=== PATIENT | male | born 1945 | race Hispanic/Latino ===

== ENCOUNTER → 2018-06-02 | Day surgery (SDC) | payer MEDICARE ==
[2018-05-29 12:23] LABS: BASOPHILS % 0.7 % (0.0-1.0); EOSINOPHILS # (AUTO) 0.1 (0.0-0.4); EOSINOPHILS % 1.3 % (0.0-6.0); HEMATOCRIT 45.4 % (38.2-49.6); HEMOGLOBIN 15.4 g/dL (14.0-18.0); LYMPHOCYTES # (AUTO) 1.4 (1.0-3.2); LYMPHOCYTES % 25.5 % (18.0-39.1); MEAN CORPUSCULAR HEMOGLOBIN 31.3 pg (28-32); MEAN CORPUSCULAR HGB CONC 33.9 g/dL (31-35); MEAN CORPUSCULAR VOLUME 92.3 fL (81-99); MONOCYTES # (AUTO) 0.7 (0.2-0.8); MONOCYTES % 12.4 % (4.4-11.3); NEUTROPHILS # (AUTO) 3.3 (2.1-6.9); NEUTROPHILS % 59.9 % (38.7-80.0); PLATELET COUNT 155 x10e3/uL (140-360); RED BLOOD COUNT 4.92 x10e6/uL (4.3-5.7); RED CELL DISTRIBUTION WIDTH 12.7 % (11.7-14.4)
--- NOTE | 2018-05-29 12:54 | Diagnostic Imaging Report ---
EXAMINATION: CHEST 2 VIEWS INDICATION: \S\PRE OP \S\ANESTH PROT COMPARISON: None FINDINGS: PA and lateral views TUBES and LINES: None. LUNGS: Lungs are well inflated. Mild linear scarring in the left upper lobe. There is no evidence of pneumonia or pulmonary edema. PLEURA: No pleural effusion or pneumothorax. HEART AND MEDIASTINUM: The cardiomediastinal silhouette is unremarkable. BONES AND SOFT TISSUES: No acute osseous lesion. Soft tissues are unremarkable. UPPER ABDOMEN: No free air under the diaphragm. Right upper quadrant cholecystectomy clips. IMPRESSION: No acute thoracic abnormality. Mild linear scarring in the left upper lobe may reflect sequela of prior pneumonia. Signed by: Dr. Lyubov Machado M.D. on 05/29/2018 12:50 PM
[~2018-06-02] MED LIST: ASPIRIN81 MG; BUPIVACAINE HCL 0.5% INJ 30 ML VIAL INJ ONE; CALCIUM; CEFAZOLIN SOD 2 GM/D5W 50ML 50 ML IV ONE; DEXAMETHASONE SOD PHOS INJ 4 MG/ML VIAL ONE; EPHEDRINE SULFATE INJ 50 MG/10 ML SYR ONE; FENTANYL CITRATE/PF 100MCG/2 ML INJ ONE; LIDOCAINE HCL 2% LOCAL INJ 5 ML SDV VIAL INJ ONE; MUPIROCIN 2% OINT 22 GM TUBE ONE; ONDANSETRON HCL INJ 2 MG/ML VIAL ONE; PROPOFOL IV EMULSION 10 MG/ML 20 ML VIAL ONE; SEVOFLURANE INHAL SOLN 250 ML PEN BTL ONE
--- NOTE | 2018-06-02 12:14 | Operative Report ---
DATE OF PROCEDURE: June 02, 2018 PREOPERATIVE DIAGNOSES 1. Tailor's bunion with plantarflexed metatarsal, 5th, right foot. 2. Hammertoe, rigid, 5th, right foot. 3. Tailor's bunion with plantarflexed 5th metatarsal, left foot. 4. Rigid hammertoe, left 5th. PROCEDURES 1. Reverse Vladimir 5th metatarsal osteotomy, right. 2. Reverse Vladimir 5th metatarsal osteotomy, left. 3. Arthroplasty, 5th digit, right. 4. Arthroplasty, 5th digit, left. 5. Use of AlloWrap to prevent adhesions, to promote healing, and to decrease the inflammatory response with a bursa at the 5th metatarsophalangeal joint, a 2 x 4 that was split in half. Half was put into the right, and half was put into the left. PATHOLOGY: None. ANESTHESIA: General anesthetic. HEMOSTASIS: Pneumatic thigh tourniquet at 350 mmHg. ESTIMATED BLOOD LOSS: Less than 10 mL. MATERIALS: EasyClip 10 x 10 x 10 mm staple for the right and EasyClip 10 x 10 x 10 staple for the left for the 5th metatarsal osteotomy. AlloWrap DS wet 2 x 4 cm, reference number [id number], lot [id number], expiration date April 05, 2019. PROCEDURE IN DETAIL: Under mild sedation, the patient was brought to the operating room and placed on the operating room table in the supine position. Following IV sedation, anesthesia was obtained with a general anesthetic. At this point, first the right foot was scrubbed, prepped and draped in the usual aseptic manner. The pneumatic ankle tourniquet was inflated. After the procedure was performed on the right, the left was then scrubbed, prepped and draped in the usual aseptic manner. It was inflated to 250 mmHg. Fifth metatarsal osteotomy, right foot: Attention was then directed to the 5th MPJ where a linear incision was made overlying the 5th metatarsal. The incision was deepened via sharp and blunt dissection down to the level of the 5th MPJ. Once the MPJ was exposed, the 5th metatarsal was then exposed. There was noted to be a medial exostosis and a plantarflexed 5th metatarsal to the right foot. Utilizing an oscillating saw, reversed Vladimir type of osteotomy was performed. The head of the 5th metatarsal was then moved into a more medial and dorsiflexed position in order to decrease the plantarflexed contracture and to decrease the intermetatarsal angle. This was secured utilizing a 10 x 10 x 10 mm EasyClip staple. There were noted to be adequate compression and adequate alignment clinically and with the use of intraop fluoroscopy. Fifth metatarsal osteotomy, left foot: This procedure was performed in the exact same manner as the procedure named above. Arthroplasty, 5th digit, right: Attention was then directed to the 5th digit where 2 semielliptical incisions that converged medial distal and proximal lateral were made. The incision was deepened down to the level of the PIPJ. At the PIPJ, the extensor tendon was then tenotomized. The PIPJ was then exposed. Once the PIPJ was then exposed, utilizing an oscillating saw, the contracture from the proximal phalanx, the head was then removed. The contracture was released. There was noted to be adequate alignment clinically and with the use of intraop fluoroscopy. At this point, the area was then flushed with copious amounts of normal sterile saline solution. Arthroplasty, 5th digit, left foot: This procedure was performed in the exact same manner as the procedure named above. Application of AlloWrap wet 2 x 4 cm: A 2 x 4 cm AlloWrap was cut in half. It was then inserted into the area of the 5th MPJ on the right and on the left. All the incisions were then closed, closing the wound in the deepest layer with 4-0 Vicryl, then 4-0 nylon. A clean dressing was applied consisting of Adaptic covered by 4 x 4's, Kerlix and an Maldonado bandage. The tourniquet was deflated first on the right and then the left, and there was noted to be adequate hyperemic response. The patient tolerated the procedure and the anesthesia well without complications. He was transported to the recovery room with vital signs stable and vascular status intact to both feet. The patient will be discharged home when he meets criteria. He was given instructions to be partial weightbearing with the use of postop shoes, to ice and elevate the foot while at rest, to limit weightbearing to activities of daily living, to call the office if any questions, concerns or any problems arise. Job#: [id number]
[2018-06-02 12:15] VITALS: BP 110/76
--- OUTSIDE RECORDS SUMMARY | 2018-06-02 14:40 | XMS REPORT | Summary of Care ---
Author Author [facility] Organization [facility] Address Unknown Phone Unavailable Encounter ROMAN Landis(DYLAN) [id number] Date(s): 04/02/17 - 04/02/17 [facility] [address] [place] [address]- Discharge Disposition: Home or Self Care Attending Physician: Chaz Lam MD Referring Physician: Chaz Lam MD Vital Signs 1 2 3 Most recent to oldest [Reference Range]: 177.8 cm (04/01/17 4:28 PM) Height 97.8 DegF (04/01/17 4:29 PM) Temperature Oral [96.4-99.1 DegF] 99/67 mmHg (04/02/17 3:15 PM) 97/71 mmHg (04/02/17 2:00 PM) 116/66 mmHg (04/02/17 1:45 PM) Blood Pressure [90-140/60-90 mmHg] 14 BRMIN (04/02/17 1:45 PM) 16 BRMIN (04/02/17 1:30 PM) 14 BRMIN (04/02/17 1:15 PM) Respiratory Rate [14-20 BRMIN] 62 bpm (04/02/17 9:27 AM) 54 bpm *LOW* (04/01/17 4:29 PM) Peripheral Pulse Rate [60-100 bpm] 66.818 kg (04/01/17 4:28 PM) Weight 21.14 m2 (04/01/17 4:28 PM) Body Mass Index Problem List Condition Effective Dates Status Health Status Informant FH: Diabetes 07/05/14 Active mellitus1 Hypertension(Confirm Resolved ed) Low back pain2 07/05/14 Active Lumbar 07/05/14 Active radiculopathy3 1Data migrated from Given.to on 04/11/15. 2Data migrated from Given.to on 04/11/15. 3Data migrated from Given.to on 04/11/15. Allergies, Adverse Reactions, Alerts Substance Reaction Severity Status NKDA Active Medications acetaminophen (ANES) Route: IV, Drug form: INJ, ONCE, Stop date: 04/02/17 11:04:00 CDT Start Date: 04/02/17 Stop Date: 04/02/17 Status: Completed acetaminophen-hydrocodone 325 mg-5 mg oral tablet 1 tab, PO, Q4H, PRN Pain, # 60 tab, 0 Refill(s), given to patient Start Date: 04/02/17 Stop Date: 04/18/17 Status: Ordered acetaminophen-hydrocodone 325 mg-5 mg oral tablet 1 tab, Route: PO, Drug Form: TAB, Dosing Weight 66.818, kg, Q4H, PRN Pain Score 4-6, Start date: 04/02/17 12:51:00 CDT, Duration: 30 day, Stop date: 05/02/17 12 :50:00 CDT Notes: (Same as: Howell 325/5) Do not exceed 4gm/day of acetaminophen. Start Date: 04/02/17 Stop Date: 04/02/17 Status: Discontinued acetaminophen-hydrocodone 325 mg-5 mg oral tablet 1 tab, Route: PO, Drug Form: TAB, Dosing Weight 66.818, kg, Q4H, PRN Pain, Start date: 04/02/17 12:51:00 CDT, Duration: 30 day, Stop date: 05/02/17 12:50:00 CDT Start Date: 04/02/17 Stop Date: 04/02/17 Status: Deleted albuterol-ipratropium 2.5-0.5 mg inhalation solution 3 mL, Route: NEB, Dosing Weight 66.818, kg, ONCE, STAT, Start date: 04/02/17 9:4 9:00 CDT, Stop date: 04/02/17 9:49:00 CDT Start Date: 04/02/17 Stop Date: 04/02/17 Status: Discontinued ANES acetaminophen 1,000 mg, 2 tab, Route: PO, Drug form: TAB, ONCE, Dosing Weight 66.818, kg, PRN Pain Score 1-3, Start date: 04/02/17 14:19:00 CDT, Duration: 1 doses or times, S top date: Limited # of times Notes: Max acetaminophen 4000 mg/day (4 gm/day). (Same as: Tylenol Extra Streng th) Start Date: 04/02/17 Stop Date: 04/02/17 Status: Discontinued ANES albuterol 0.083% inhalation solution 2.49 mg, 3 mL, Route: NEB, Drug form: SOLN, Q20Min, Dosing Weight 66.818, kg, MN N Wheezing, Priority: STAT, Start date: 04/02/17 14:19:00 CDT, Duration: 30 day, Stop date: 05/02/17 14:18:00 CDT Notes: SEE RT DOCUMENTATION (Same as: Arvind) Start Date: 04/02/17 Stop Date: 04/02/17 Status: Discontinued ANES dexamethasone 4 mg, 1 mL, Route: IVP, Drug form: INJ, ONCE, Dosing Weight 66.818, kg, PRN Naus ea & Vomiting, Start date: 04/02/17 14:19:00 CDT Start Date: 04/02/17 Stop Date: 04/02/17 Status: Discontinued ANES diphenhydrAMINE 12.5 mg, 0.25 mL, Route: IVP, Drug form: INJ, Q6H, Dosing Weight 66.818, kg, PRN Itching, Start date: 04/02/17 14:19:00 CDT, Duration: 30 day, Stop date: 14:18:00 CDT Notes: (Same as: Benadryl) Start Date: 04/02/17 Stop Date: 04/02/17 Status: Discontinued ANES esmolol 10 mg, 1 mL, Route: IVP, Drug form: INJ, Q5Min, Dosing Weight 66.818, kg, PRN Ot her -See Comment, Start date: 04/02/17 14:19:00 CDT, Duration: 5 doses or times, Stop date: Limited # of times Notes: (Same as: Brevibloc) Start Date: 04/02/17 Stop Date: 04/02/17 Status: Discontinued ANES fentaNYL 50 microgram, 1 mL, Route: IVP, Drug form: INJ, Q5Min, Dosing Weight 66.818, kg, PRN Pain Score 7-10, Priority: Routine, Start date: 04/02/17 14:19:00 CDT, Dura tion: 2 doses or times, Stop date: Limited # of times Notes: (Same as: Sublimaze) Preservative free. Start Date: 04/02/17 Stop Date: 04/02/17 Status: Discontinued ANES fentaNYL 25 microgram, 0.5 mL, Route: IVP, Drug form: INJ, Q5Min, Dosing Weight 66.818, k g, PRN Pain Score 4-6, Priority: Routine, Start date: 04/02/17 14:19:00 CDT, Dur ation: 4 doses or times, Stop date: Limited # of times Notes: (Same as: Sublimaze) Preservative free. Start Date: 04/02/17 Stop Date: 04/02/17 Status: Discontinued ANES flumazenil 0.2 mg, 2 mL, Route: IVP, Drug form: INJ, PRN, Dosing Weight 66.875, kg, PRN Yefri zodiazepine Reversal, Initial dose, Start date: 04/02/17 14:19:00 CDT, Duration: 30 day, Stop date: 05/02/17 14:18:00 CDT Notes: (Same as: Romazicon) Start Date: 04/02/17 Stop Date: 04/02/17 Status: Discontinued ANES hydrALAZINE 10 mg, 0.5 mL, Route: IVP, Drug form: INJ, Q20Min, Dosing Weight 66.818, kg, PRN Elevated BP, Start date: 04/02/17 14:19:00 CDT, Duration: 2 doses or times, Stop date: Limited # of times Notes: (Same as: Apresoline)Push over 5 minutes Start Date: 04/02/17 Stop Date: 04/02/17 Status: Discontinued ANES HYDROmorphone 0.5 mg, 0.5 mL, Route: IVP, Drug form: INJ, Q5Min, Dosing Weight 66.875, kg, PRN Pain Score 7-10, Start date: 04/02/17 14:19:00 CDT, Duration: 4 doses or times, Stop date: Limited # of times Start Date: 04/02/17 Stop Date: 04/02/17 Status: Discontinued ANES labetalol 10 mg, 2 mL, Route: IVP, Drug form: INJ, Q5Min, Dosing Weight 66.818, kg, PRN El evated BP, Start date: 04/02/17 14:19:00 CDT, Duration: 5 doses or times, Stop d ate: Limited # of times Notes: (Same as: Normodyne, Trandate)Push over 2 minutes Give bolus over 2-3 mi nutes. Start Date: 04/02/17 Stop Date: 04/02/17 Status: Discontinued ANES meperidine 12.5 mg, 0.25 mL, Route: IVP, Drug form: INJ, Q30Min, Dosing Weight 66.818, kg, PRN Other -See Comment, For shivering, Start date: 04/02/17 14:19:00 CDT, Durati on: 2 doses or times, Stop date: Limited # of times Notes: (Same As: Demerol) Start Date: 04/02/17 Stop Date: 04/02/17 Status: Discontinued ANES morphine Sulfate 4 mg, 1 mL, Route: IVP, Drug form: SOLN, Q5Min, Dosing Weight 66.818, kg, PRN Pa in Score 7-10, Start date: 04/02/17 14:19:00 CDT, Duration: 3 doses or times, St op date: Limited # of times Notes: (Same as:MORPhine Sulfate) Start Date: 04/02/17 Stop Date: 04/02/17 Status: Discontinued ANES morphine Sulfate 2 mg, 1 mL, Route: IVP, Drug form: SOLN, Q5Min, Dosing Weight 66.818, kg, PRN Pa in Score 4-6, Start date: 04/02/17 14:19:00 CDT, Duration: 5 doses or times, Sto p date: Limited # of times Start Date: 04/02/17 Stop Date: 04/02/17 Status: Discontinued ANES naloxone 0.4 mg, 1 mL, Route: IVP, Drug form: INJ, Q2MIN, Dosing Weight 66.875, kg, PRN N arcotic Reversal, Start date: 04/02/17 14:19:00 CDT, Duration: 8 doses or times, Stop date: Limited # of times Notes: Same as Narcan Start Date: 04/02/17 Stop Date: 04/02/17 Status: Discontinued ANES ondansetron 4 mg, 2 mL, Route: IVP, Drug form: INJ, ONCE, Dosing Weight 66.875, kg, PRN Naus ea & Vomiting, Start date: 04/02/17 14:19:00 CDT Notes: (Same as: Zoan) MEDICATION WASTE Product Size: 4 mgProduct Was alcides: _0__ mg Start Date: 04/02/17 Stop Date: 04/02/17 Status: Discontinued ANES oxyCODONE 5 mg, 1 tab, Route: PO, Drug form: TAB, Q4H, Dosing Weight 66.875, kg, PRN Pain Score 4-6, Start date: 04/02/17 14:19:00 CDT, Duration: 30 day, Stop date: 05/02 14:18:00 CDT Notes: (Same as: Roxicodone) Start Date: 04/02/17 Stop Date: 04/02/17 Status: Discontinued ceFAZolin (ANES) Route: IV, Drug form: INJ, ONCE, Stop date: 04/02/17 10:54:00 CDT Start Date: 04/02/17 Stop Date: 04/02/17 Status: Completed ceFAZolin (SCIP) 1 gm, 100 mL, Route: IVPB, Drug form: INJ, Q8H, Dosing Weight 66.818, kg, Start date: 04/02/17 16:00:00 CDT, Duration: 3 doses or times, Stop date: 04/03/17 8:0 0:00 CDT, ABX Indication: Surgical Prophylaxis Start Date: 04/02/17 Stop Date: 04/02/17 Status: Discontinued Colace 100 mg oral capsule 100 mg, 1 cap, Route: PO, Drug form: CAP, BID, Dosing Weight 66.818, kg, Start d ate: 04/02/17 17:00:00 CDT, Duration: 30 day, Stop date: 05/02/17 9:00:00 CDT Notes: (Same as: Colace) (Do Not Crush) Start Date: 04/02/17 Stop Date: 04/02/17 Status: Discontinued dexamethasone (ANES) Route: IV, Drug form: INJ, ONCE, Stop date: 04/02/17 11:04:00 CDT Start Date: 04/02/17 Stop Date: 04/02/17 Status: Completed Dilaudid 1 mg, 1 mL, Route: IV, Drug form: INJ, Q3H, Dosing Weight 66.818, kg, PRN Pain S core 7-10, Start date: 04/02/17 12:51:00 CDT, Duration: 30 day, Stop date: 05/02 12:50:00 CDT Start Date: 04/02/17 Stop Date: 04/02/17 Status: Discontinued Dilaudid 0.5 mg, 0.5 mL, Route: IV, Drug form: INJ, Q3H, Dosing Weight 66.818, kg, PRN Pa in Score 4-6, Start date: 04/02/17 12:51:00 CDT, Duration: 30 day, Stop date: 12:50:00 CDT Start Date: 04/02/17 Stop Date: 04/02/17 Status: Discontinued ePHEDrine (ANES) Route: IV, Drug form: INJ, ONCE, Stop date: 04/02/17 11:49:00 CDT Start Date: 04/02/17 Stop Date: 04/02/17 Status: Completed famotidine (ANES) Route: IV, Drug form: INJ, ONCE, Stop date: 04/02/17 11:04:00 CDT Start Date: 04/02/17 Stop Date: 04/02/17 Status: Completed fentaNYL (ANES) Route: IV, Drug form: INJ, ONCE, Stop date: 04/02/17 10:59:00 CDT Start Date: 04/02/17 Stop Date: 04/02/17 Status: Completed heparin 5000 units/mL injectable solution 5,000 unit, 1 mL, Route: SUB-Q, Drug form: INJ, Q12H, Dosing Weight 66.818, kg, Start date: 04/03/17 8:00:00 CDT, Duration: 30 day, Stop date: 05/02/17 21:00:00 CDT Notes: porcine heparin Start Date: 04/03/17 Stop Date: 04/02/17 Status: Canceled Lactated Ringers 1,000 mL 1,000 mL, Rate: 125 ml/hr, Infuse over: 8 hr, Route: IV, Dosing Weight 66.818 kg , Total Volume: 1,000, Start date: 04/02/17 14:19:00 CDT, Duration: 30 day, Stop date: 05/02/17 14:18:00 CDT Start Date: 04/02/17 Stop Date: 04/02/17 Status: Discontinued Lactated Ringers Injection IV 1000 mL 1,000 mL, Rate: 25 ml/hr, Infuse over: 40 hr, Route: IV, Dosing Weight 66.818 kg , Total Volume: 1,000, Start date: 04/02/17 9:49:00 CDT, Duration: 30 day, Stop date: 05/02/17 9:48:00 CDT Start Date: 04/02/17 Stop Date: 04/02/17 Status: Discontinued lidocaine (ANES) Route: IV, Drug form: INJ, ONCE, Stop date: 04/02/17 10:59:00 CDT Start Date: 04/02/17 Stop Date: 04/02/17 Status: Completed LR 1000 mL INJ (ANES) Route: IV, Total Volume: 1,000, Start date: 04/02/17 9:58:00 CDT, Stop date: 10:58:00 CDT Start Date: 04/02/17 Stop Date: 04/02/17 Status: Completed magnesium citrate 300 ml, Route: PO, Drug Form: LIQ, Dosing Weight 66.818, kg, ONCE, PRN Constipat ion, Start date: 04/02/17 12:51:00 CDT Notes: (Same as: Citrate of Magnesia)Concentration: 1.745 gm / 30 mL Start Date: 04/02/17 Stop Date: 04/02/17 Status: Discontinued Marcaine HCl with Epinephrine 0.5%-1:200,000 injectable solution 30 mL, Route: InFILtration(local), Drug Form: INJ, Dosing Weight 66.818, kg, ONC E, Start date: 04/02/17 7:14:00 CDT, Stop date: 04/02/17 7:14:00 CDT Notes: (bupivacaine-epi 0.5%-1:200,000 30 ml VL) Not for use in continuous infu analy. (Same As: Marcaine w/Epi) Start Date: 04/02/17 Stop Date: 04/02/17 Status: Ordered midazolam (ANES) Route: IV, Drug form: SOLN, ONCE, Stop date: 04/02/17 10:59:00 CDT Start Date: 04/02/17 Stop Date: 04/02/17 Status: Completed ondansetron (ANES) Route: IV, Drug form: INJ, ONCE, Stop date: 04/02/17 11:04:00 CDT Start Date: 04/02/17 Stop Date: 04/02/17 Status: Completed oxyCODONE 5 mg oral tablet 10 mg, Route: PO, Drug form: TAB, ONCE, Dosing Weight 66.818, kg, PRN Pain Score 7-10, Start date: 04/02/17 14:20:00 CDT Start Date: 04/02/17 Stop Date: 04/02/17 Status: Completed Pepcid 20 mg oral tablet 20 mg, 1 tab, Route: PO, Drug form: TAB, Q12H, Dosing Weight 66.818, kg, Start d ate: 04/02/17 21:00:00 CDT, Duration: 30 day, Stop date: 05/02/17 9:00:00 CDT Notes: (Same as: Pepcid) Start Date: 04/02/17 Stop Date: 04/02/17 Status: Discontinued propofol (ANES) Route: IV, Drug form: INJ, ONCE, Stop date: 04/02/17 10:59:00 CDT Start Date: 04/02/17 Stop Date: 04/02/17 Status: Completed rocuronium (ANES) Route: IV, Drug form: INJ, ONCE, Stop date: 04/02/17 11:04:00 CDT Start Date: 04/02/17 Stop Date: 04/02/17 Status: Completed Senokot 17.2 mg, 2 tab, Route: PO, Drug Form: TAB, Dosing Weight 66.818, kg, Daily, Star t date: 04/03/17 9:00:00 CDT, Duration: 30 day, Stop date: 05/02/17 9:00:00 CDT Notes: (Same as: Senokot) Start Date: 04/03/17 Stop Date: 04/02/17 Status: Canceled sodium chloride 0.9% 1000 ml INJ 1,000 mL 1,000 mL, Rate: 75 ml/hr, Infuse over: 13.3 hr, Route: IV, Dosing Weight 66.818 kg, Total Volume: 1,000, Start date: 04/02/17 12:51:00 CDT, Duration: 30 day, St op date: 05/02/17 12:50:00 CDT Start Date: 04/02/17 Stop Date: 04/02/17 Status: Discontinued Tylenol 650 mg, 2 tab, Route: PO, Drug form: TAB, Q4H, Dosing Weight 66.818, kg, PRN Benjamín n 1-3/Temp > 100.4 F, Start date: 04/02/17 12:51:00 CDT, Duration: 30 day, Stop date: 05/02/17 12:50:00 CDT Notes: Do not exceed 4 gm/day. (Same as: Tylenol) Start Date: 04/02/17 Stop Date: 04/02/17 Status: Discontinued Zofran 4 mg, 2 mL, Route: IV, Drug form: INJ, Q8H, Dosing Weight 66.818, kg, PRN Nausea , Start date: 04/02/17 12:51:00 CDT, Duration: 30 day, Stop date: 05/02/17 12:50 :00 CDT Notes: (Same as: Zofran) MEDICATION WASTE Product Size: 4 mgProduct Was alcides: __0 mg Start Date: 04/02/17 Stop Date: 04/02/17 Status: Discontinued Results BLOOD BANK RESULTS Most recent to 1 oldest [Reference Range]: ABO/Rh O POS *Unknown* (04/01/17 4:48 PM) Antibody Scrn Negative (04/01/17 4:48 PM) ELECTROLYTES Most recent to 1 oldest [Reference Range]: Sodium Lvl [135-145 138 mEq/L mEq/L] (04/01/17 4:48 PM) Potassium Lvl 4.7 mEq/L [3.5-5.1 mEq/L] (04/01/17 4:48 PM) Chloride Lvl [95-109 103 mEq/L mEq/L] (04/01/17 4:48 PM) CO2 [24-32 mEq/L] 34 mEq/L *HI* (04/01/17 4:48 PM) AGAP [10.0-20.0 5.7 mEq/L mEq/L] *LOW* (04/01/17 4:48 PM) CHEM PANEL Most recent to 1 oldest [Reference Range]: Creatinine Lvl 0.91 mg/dL [0.50-1.40 mg/dL] (04/01/17 4:48 PM) eGFR 84 mL/min/1.73m2 1 *NA* (04/01/17 4:48 PM) BUN [7-22 mg/dL] 29 mg/dL *HI* (04/01/17 4:48 PM) B/C Ratio [6-25] 32 *HI* (04/01/17 4:48 PM) Glucose Lvl [70-99 68 mg/dL mg/dL] *LOW* (04/01/17 4:48 PM) Total Protein 6.8 g/dL [6.4-8.4 g/dL] (04/01/17 4:48 PM) Albumin Lvl [3.5-5.0 3.5 g/dL g/dL] (04/01/17 4:48 PM) Globulin [2.7-4.2 3.3 g/dL g/dL] (04/01/17 4:48 PM) A/G Ratio [0.7-1.6] 1.1 (04/01/17 4:48 PM) Calcium Lvl 8.8 mg/dL [8.5-10.5 mg/dL] (04/01/17 4:48 PM) ALT [0-65 unit/L] 25 unit/L (04/01/17 4:48 PM) AST [0-37 unit/L] 19 unit/L (04/01/17 4:48 PM) Alk Phos [39-136 92 unit/L unit/L] (04/01/17 4:48 PM) Bili Total [0.2-1.3 0.6 mg/dL mg/dL] (04/01/17 4:48 PM) 1Result Comment: The eGFR is calculated using the CKD-EPI formula. In most young, healthy individuals the eGFR will be >90 mL/min/1.73m2. The eGFR declines with age. An eGFR of 60-89 may be normal in some populations, particularly the elderly, for whom the CKD-EPI formula has not been extensively validated. Use of the eGFR is not recommended in the following populations: Individuals with unstable creatinine concentrations, including patients and those with serious co-morbid conditions. Patients with extremes in muscle mass or diet. The data above are obtained from the National Kidney Disease Education Program ( NKDEP) which additionally recommends that when the eGFR is used in patients with extremes of body mass index for purposes of drug dosing, the eGFR should be mul tiplied by the estimated BMI. HEMATOLOGY Most recent to 1 oldest [Reference Range]: WBC [3.7-10.4 K/CMM] 6.1 K/CMM (04/01/17 4:48 PM) RBC [4.70-6.10 4.67 M/CMM M/CMM] *LOW* (04/01/17 4:48 PM) Hgb [14.0-18.0 g/dL] 14.7 g/dL (04/01/17 4:48 PM) Hct [42.0-54.0 %] 43.8 % (04/01/17 4:48 PM) MCV [80.0-94.0 fL] 93.7 fL (04/01/17 4:48 PM) MCH [27.0-31.0 pg] 31.5 pg *HI* (04/01/17 4:48 PM) MCHC [32.0-36.0 33.6 g/dL g/dL] (04/01/17 4:48 PM) RDW [11.5-14.5 %] 13.5 % (04/01/17 4:48 PM) Platelet [133-450 175 K/CMM K/CMM] (04/01/17 4:48 PM) MPV [7.4-10.4 fL] 7.4 fL (04/01/17 4:48 PM) Segs [45.0-75.0 %] 62.8 % (04/01/17 4:48 PM) Lymphocytes 24.4 % [20.0-40.0 %] (04/01/17 4:48 PM) Monocytes [2.0-12.0 10.5 % %] (04/01/17 4:48 PM) Eosinophils [0.0-4.0 1.5 % %] (04/01/17 4:48 PM) Basophils [0.0-1.0 0.8 % %] (04/01/17 4:48 PM) Segs-Bands # 3.9 K/CMM [1.5-8.1 K/CMM] (04/01/17 4:48 PM) Lymphocytes # 1.5 K/CMM [1.0-5.5 K/CMM] (04/01/17 4:48 PM) Monocytes # [0.0-0.8 0.6 K/CMM K/CMM] (04/01/17 4:48 PM) Eosinophils # 0.1 K/CMM [0.0-0.5 K/CMM] (04/01/17 4:48 PM) PT [12.0-14.7 14.9 seconds seconds] *HI* (04/01/17 4:48 PM) INR [0.85-1.17] 1.15 (04/01/17 4:48 PM) PTT [22.9-35.8 25.6 seconds seconds] (04/01/17 4:48 PM) Immunizations No data available for this section Procedures Procedure Date Related Diagnosis Body Site Arthroscopy of knee1 Cholecystectomy Epidural steroid injection2 Operation3 Operation Primary repair of inguinal hernia4 Shoulder repair 102/2007 2x3 /2015 402/2005 Social History Social History Type Response Alcohol Never Smoking Status Never smoker; Exposure to Tobacco Smoke None; Cigarette Smoking Last 365 Days No; Reg Smoking Cessation Counseling Yes Assessment and Plan Extracted from: Title: Clinical Document Author: Chaz Lam MD Date: 04/02/17 Neurosurgery Discharge Summary Admit Date: 04/02/2017 Discharge Date: 04/02/2017 Diagnosis: LEFT L3-L4 foraminal herniated disc Procedure: LEFT L3-L4 transfacet microdiscectomy Surgeon: Genaro Hospital Course: Patient admitted, underwent above procedure, tolerated well. Ambulated, urinated, tolerated oral POs, safe to discharge home in stable condition PE: Preop AFVSS IPsQGATEHL [id number] [id number] Postop AFVSS IPsQGATEHL [id number] L4-4-555 c/d/i PLAN: Follow-up in [address] Lam at [phone] Extracted from: Title: Clinical Document Author: Chaz Lam MD Date: 04/02/17 PATIENT NAME: MR HAKAN BARONE DATE OF OPERATION/PROCEDURE: 04/02/2017 *_*_* PREOPERATIVE DIAGNOSIS: 1.LEFT L3 radiculopathy secondary to a LEFT extraforaminal lateral L3-L4 herniated nucleus pulposus causing extraforaminal tethering of the nerve root. POSTOPERATIVE DIAGNOSIS: 1.LEFT L3 radiculopathy secondary to a LEFT extraforaminal lateral L3-L4 herniated nucleus pulposus causing extraforaminal tethering of the nerve root. PROCEDURES PERFORMED: 1.LEFT paramedian, lateral extraforaminal approach to the lumbar spine from L3-L4. 2.LEFT-sided extraforaminal microdiskectomy at L3-L4. 3.Use of microscope for decompression. 4.Use of radiographs vertebral level localization and for confirmation. SURGEON: Chaz Lam MD PIE CHEF: Jackson Rasmussen ANESTHESIA: General endotracheal tube anesthesia. COMPLICATIONS: None. IV FLUIDS: 1400 cc URINE OUTPUT: NA ESTIMATED BLOOD LOSS: 50 cc INDICATIONS FOR SURGERY: 72 yo M with far lateral L3-L4 disc herniation. Patient has had severe left back pain for years. MRI shows LEFT L3-L4 foraminal stenosis with far lateral disc bulge. On exam, LEFT IPs/Quad are 3 consistent with LEFT L3 radiculopathy. Patient has failed injections, medications, and exercise. We recommend: LEFT L3-L4 lateral extraforaminal microdiskectomy (paramedian approach). We discussed the risks and benefits of surgery. Risks include bleeding, infection, neurologic injury including weakness, numbness, paralysis, , spinal fluid leak, instability, and need for reoperation or fusion. There is a risk of disk reherniation of 10% in the first year, and 4% every year thereafter. The patient expressed understanding of the risks and benefits of the procedure and wished to proceed. All questions were answered. No guarantees were made to the outcome of the case. DESCRIPTION OF OPERATION: The patient was appropriately identified with all markers. The patient was brought back by anesthesia and received general endotracheal tube anesthesia with the neck held in neutral position. The patient was then dosed with preoperative antibiotics. The patient was then turned prone onto a regular table with a Darren frame at the flat setting. All bony prominences were padded. SCDs were placed on bilateral lower extremities. The lumbar spine was then prepped and draped in sterile fashion including alcohol, ChloraPrep and Betadine scrub and paint. Operative timeout was performed. The incision was planned for a LEFT L3-L4 lateral extraforaminal microdiskectomy (paramedian approach). Skin was injected with 0.5% Marcaine with epinephrine. A 10 blade and scalpel was then used to make a paramedian vertical longitudinal incision LEFT of midline spanning the L3 to L4 transverse processes. Bovie cautery was used to deepen the incision through subcutaneous tissue and fascia. A fascial incision was made, and blunt dissection was performed between the multifidous and longissimus muscles to the transverse processes of L3 and L4 on the LEFT. A curet was then applied to the transverse processes and AP and lateral radiographs were taken to confirm vertebral level. Dissection was continued to the disc. The ligamentous band between the L3 and L4 spinous processes was incised with a curet and bipolar. Due to the narrow corridor, it was necessary to drill the inferior L3 transverse process, lateral L3 pars, lateral L3-L4 joint, and superior L4 transverse process to approach the disc. Under the ligamentous band, the exiting L3 nerve was identified as it draped over the L3-L4 disc. There was significant tension as this nerve was tented over the disc. The L3-L4 disc was identified. Here there was noted to be a herniated component laterally herniating onto the undersurface of the exiting L3 nerve root. Extraforaminal microdiscectomy was then performed. Annulotomy was performed with a 15 blade. Loose herniated disc was gently resected with a series of pituitary, curets, and nerve hooks to gently deliver and loose disc. Once completed, no further disc was found compressed on the nerve root. A nunez ball probe was passed through the foramen and the nerve root was found to be not compressed. Closure was then commenced. The fascia was closed with 0 Vicryl in interrupted fashion. The dermis was closed with 2-0 Vicryl in interrupted fashion. Skin was approximated with Mastisol, Steri-Strips, followed by Telfa and Hypafix dressing. All needle and sponge counts were correct. There were no complications during the surgery. The patient was then carefully rolled supine onto a hospital bed. The patient was revived, extubated and taken to recovery room in stable condition, moving all 4 extremities postoperatively with good strength. Dr. Chaz Lam was scrubbed and present for the entire procedure. We discussed the completion of the case patient's family. They were very grateful for the care and information. All questions were answered.
--- OUTSIDE RECORDS SUMMARY | 2018-06-02 14:40 | XMS REPORT | CCD ---
Author Author Auto Generated Organization [facility] Address Unknown Phone Unavailable Care Team Providers Care Personnel Generalist Manager Name Role Phone Nathanael Lutz RP Allergies, Adverse Reactions, Alerts Substance Reaction Status NKDA Active
--- OUTSIDE RECORDS SUMMARY | 2018-06-02 14:40 | XMS REPORT | Summary of Care ---
Author Author [facility] Organization [facility] Address Unknown Phone Unavailable Encounter HQ Sabiha(FIN) [id number] Date(s): 10/08/17 - 10/08/17 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 2Data migrated from [employer] on 04/11/15. 3Data migrated from [employer] on 04/11/15. Allergies, Adverse Reactions, Alerts Substance Reaction Severity Status NKDA Active Medications No data available for this section Results No data available for this section Immunizations No data available for this section Procedures Procedure Date Related Diagnosis Body Site Status Arthroscopy of knee1 Completed Cholecystectomy Completed Epidural steroid injection2 Completed Operation3 Completed Operation Completed Primary repair of inguinal hernia4 Completed Shoulder repair Completed 2x3 /2004 Social History Social History Type Response Alcohol Never Smoking Status Never smoker; Exposure to Tobacco Smoke None; Cigarette Smoking Last 365 Days No; Reg Smoking Cessation Counseling Yes entered on: 07/08/17 Assessment and Plan No data available for this section
--- OUTSIDE RECORDS SUMMARY | 2018-06-02 14:40 | XMS REPORT | Summary of Care ---
Author Author [facility] Organization [facility] Address Unknown Phone Unavailable Encounter ROMAN Landis(DYLAN) [id number] Date(s): 03/08/15 - 03/08/15 [facility] [address] [place] [address]- [phone] Discharge Diagnosis: Acute gastroenteritis Discharge Diagnosis: Food poisoning, unspecified Discharge Disposition: Home Attending Physician: Chelsi Virgen DO Vital Signs 1 2 3 Most recent to oldest [Reference Range]: 177.8 cm (03/08/15 2:40 AM) Height 1 2 3 Most recent to oldest [Reference Range]: 98.6 DegF (03/08/15 4:00 AM) Temperature Oral [96.4-99.1 DegF] 1 2 3 Most recent to oldest [Reference Range]: 114/64 mmHg (03/08/15 4:00 AM) 118/70 mmHg (03/08/15 3:03 AM) 122/70 mmHg (03/08/15 2:40 AM) Blood Pressure [90-140/60-90 mmHg] 1 2 3 Most recent to oldest [Reference Range]: 18 BRMIN (03/08/15 4:00 AM) 18 BRMIN (03/08/15 3:03 AM) 18 BRMIN (03/08/15 2:40 AM) Respiratory Rate [14-20 BRMIN] 1 2 3 Most recent to oldest [Reference Range]: 62 bpm (03/08/15 4:00 AM) 65 bpm (03/08/15 3:03 AM) 67 bpm (03/08/15 2:40 AM) Peripheral Pulse Rate [60-100 bpm] 1 2 3 Most recent to oldest [Reference Range]: 65.909 kg (03/08/15 2:40 AM) Weight 1 2 3 Most recent to oldest [Reference Range]: 20.85 m2 (03/08/15 2:40 AM) Body Mass Index Problem List Condition Effective Dates Status Health Status Informant Hypertension(Confirm Active ed) Allergies, Adverse Reactions, Alerts Substance Reaction Severity Status NKDA Active Medications acetaminophen 650 mg, Route: PO, Drug form: TAB, ONCE, Dosing Weight 65.909, kg, Priority: STA T, Start date: 03/08/15 2:57:00, Stop date: 03/08/15 2:57:00 Start Date: 03/08/15 Stop Date: 03/08/15 Status: Completed loperamide 4 mg, 2 cap, Route: PO, Drug form: CAP, ONCE, Dosing Weight 65.909, kg, Priority : STAT, Start date: 03/08/15 2:57:00, Stop date: 03/08/15 2:57:00 Notes: (Same as: Imodium) MAX adult dose is 8 caps/day Start Date: 03/08/15 Stop Date: 03/08/15 Status: Completed loperamide 2 mg oral tablet 2 mg=1 tab, PO, Q4H, PRN Loose Stools, X 10 day, # 12 tab, 0 Refill(s) Start Date: 03/08/15 Stop Date: 03/18/15 Status: Ordered Romeo 5/325 oral tablet 1 tab, Route: PO, Drug Form: TAB, Dosing Weight 65.909, kg, ONCE, STAT, Start da te: 03/08/15 4:02:00, Stop date: 03/08/15 4:02:00 Start Date: 03/08/15 Stop Date: 03/08/15 Status: Completed Tylenol with Codeine #3 oral tablet 1 - 2 tab, PO, Q4H, PRN Pain, X 2 day, # 20 tab, 0 Refill(s) Start Date: 03/08/15 Stop Date: 03/10/15 Status: Completed Zofran 4 mg oral tablet 4 mg=1 tab, PO, Q8H, PRN Nausea/vomiting, X 10 day, # 30 tab, 0 Refill(s) Start Date: 03/08/15 Stop Date: 03/18/15 Status: Ordered Zofran ODT 4 mg, Route: PO, Drug form: TABDIS, ONCE, Dosing Weight 65.909, kg, Priority: ST AT, Start date: 03/08/15 2:57:00, Stop date: 03/08/15 2:57:00 Start Date: 03/08/15 Stop Date: 03/08/15 Status: Completed Results No data available for this section Immunizations No data available for this section Procedures Procedure Date Related Diagnosis Body Site Cholecystectomy Shoulder repair Social History Social History Type Response Alcohol Never Smoking Status Never smoker; Exposure to Tobacco Smoke None; Cigarette Smoking Last 365 Days No; Reg Smoking Cessation Counseling Yes Assessment and Plan No data available for this section
--- OUTSIDE RECORDS SUMMARY | 2018-06-02 14:40 | XMS REPORT | Summary of Care ---
Author Author [facility] Organization [facility] Address Unknown Phone Unavailable Encounter ROMAN Landis(DYLAN) [id number] Date(s): 05/15/15 - 05/15/15 [facility] [address] [place] [address]- Discharge Disposition: Home Attending Physician: Bertrand Macario MD Admitting Physician: Bertrand Macario MD Referring Physician: Bertrand Macario MD Vital Signs No data available for this section Problem List Condition Effective Dates Status Health Status Informant FH: Diabetes 07/05/14 Active mellitus1 Hypertension(Confirm Active ed) Low back pain2 07/05/14 Active Lumbar 07/05/14 Active radiculopathy3 1Data migrated from [employer] on 04/11/15. 2Data migrated from [employer] on 04/11/15. 3Data migrated from [employer] on 04/11/15. Allergies, Adverse Reactions, Alerts Substance Reaction Severity Status NKDA Active Medications No data available for this section Results CHEM PANEL Most recent to 1 oldest [Reference Range]: eGFR 91 mL/min/1.73m2 1 *NA* (05/15/15 8:56 AM) POC Creatinine 0.8 mg/dL [0.5-1.4 mg/dL] (05/15/15 8:56 AM) 1Result Comment: The eGFR is calculated using [...] be mul tiplied by the estimated BMI. Immunizations No data available for this section Procedures Procedure Date Related Diagnosis Body Site Cholecystectomy Shoulder repair Social History Social History Type Response Alcohol Never Smoking Status Never smoker; Exposure to Tobacco Smoke None; Cigarette Smoking Last 365 Days No; Reg Smoking Cessation Counseling Yes Assessment and Plan No data available for this section
--- OUTSIDE RECORDS SUMMARY | 2018-06-02 14:40 | XMS REPORT | Summary of Care ---
Author Organization Unknown Address Unknown Phone Unavailable Encounter HQ Sabiha(DYLAN) [id number] Date(s): 07/01/14 - 07/01/14 [facility] [place] [address] [address] [place], [place] [id number] [place] [address] Discharge Diagnosis: Lumbago Discharge Disposition: Home Physician Attending: Felicia Virgen MD Reason for Visit BACK PAIN Vital Signs Most recent to 1 2 oldest [Reference Range]: Height 177.8 cm (07/01/14 10:54 AM) Temperature Oral 98.1 DegF 97.6 DegF [96.4-99.1 DegF] (07/01/14 1:30 PM) (07/01/14 10:54 AM) Systolic Blood 128 mmHg 106 mmHg Pressure [90-140 (07/01/14 1:30 PM) (07/01/14 10:54 AM) mmHg] Diastolic Blood 74 mmHg 77 mmHg Pressure [60-90 (07/01/14 1:30 PM) (07/01/14 10:54 AM) mmHg] Respiratory Rate 18 BRMIN 18 BRMIN [14-20 BRMIN] (07/01/14 1:30 PM) (07/01/14 10:54 AM) Peripheral Pulse 74 bpm 84 bpm Rate [60-100 bpm] (07/01/14 1:30 PM) (07/01/14 10:54 AM) Weight 67.273 kg (07/01/14 10:54 AM) Body Mass Index 21.28 m2 (07/01/14 10:54 AM) Problem List No data available for this section Allergies, Adverse Reactions, Alerts Substance Reaction Severity Status NKDA Active Medications dexamethasone 10 mg, Route: IM, ONCE, Dosing Weight 67.273, kg, Priority: STAT, Start date: 11:34:00, Stop date: 07/01/14 11:34:00 Start Date: 07/01/14 Stop Date: 07/01/14 Status: Completed Flexeril 10 mg oral tablet 10 mg, PO, TID, Muscle Spasm, # 30 tab, 0 Refill(s) Start Date: 07/01/14 Stop Date: 07/11/14 Status: Ordered ibuprofen 800 mg oral tablet 800 mg, PO, Q8H, Pain, Take with food, # 30 tab, 0 Refill(s) Special Instructions: Take with food Start Date: 07/01/14 Stop Date: 07/11/14 Status: Ordered ketorolac 60 mg, Route: IM, Drug form: INJ, ONCE, Dosing Weight 67.273, kg, Priority: STAT , Start date: 07/01/14 11:34:00, Stop date: 07/01/14 11:34:00 Start Date: 07/01/14 Stop Date: 07/01/14 Status: Completed Valium 5 mg, Route: PO, ONCE, Dosing Weight 67.273, kg, Priority: STAT, Start date: 11:35:00, Stop date: 07/01/14 11:35:00 Start Date: 07/01/14 Stop Date: 07/01/14 Status: Completed Medications Administered During Your Visit No data available for this section Immunizations No data available for this section
--- OUTSIDE RECORDS SUMMARY | 2018-06-02 14:40 | XMS REPORT | Summary of Care ---
Author Author [facility] Organization [facility] Address Unknown Phone Unavailable Encounter HQ Sabiha(FIN) [id number] Date(s): 07/08/17 - 07/08/17 [facility] [address] [place] [address] [phone] Discharge Disposition: Home or Self Care Attending Physician: Chaz Lam MD Referring Physician: Nara Kuo MD Vital Signs Most recent to 1 oldest [Reference Range]: Height 177.8 cm (07/08/17 5:11 PM) Blood Pressure 100/62 mmHg [90-140/60-90 mmHg] (07/08/17 5:11 PM) Peripheral Pulse 62 bpm Rate [60-100 bpm] (07/08/17 5:11 PM) Weight 66.364 kg (07/08/17 5:11 PM) Body Mass Index 20.99 m2 (07/08/17 5:11 PM) Problem List Condition Effective Dates Status Health [...] Primary repair of inguinal hernia4 Shoulder repair 102/2006 2x3 /2014 402/2005 Social History Social History Type Response Alcohol Never Smoking Status Never smoker; Exposure to Tobacco Smoke None; Cigarette Smoking Last 365 Days No; Reg Smoking Cessation Counseling Yes Assessment and Plan No data available for this section
--- OUTSIDE RECORDS SUMMARY | 2018-06-02 14:40 | XMS REPORT | Summary of Care ---
Author Author [facility] Organization [facility] Address Unknown Phone Unavailable Encounter ROMAN Landis(DYLAN) [id number] Date(s): 07/31/16 - 07/31/16 [facility] [address] [place] [address]- Discharge Disposition: Home or Self Care Attending Physician: Harshal Wyatt MD Referring Physician: Harshal Wyatt MD Vital Signs 1 2 3 Most recent to oldest [Reference Range]: 177.8 cm (07/22/16 8:13 AM) Height 97.5 DegF (07/22/16 8:24 AM) Temperature Oral [96.4-99.1 DegF] 113/61 mmHg (07/31/16 8:00 AM) 111/76 mmHg (07/31/16 7:45 AM) 113/71 mmHg (07/31/16 7:33 AM) Blood Pressure [90-140/60-90 mmHg] 15 BRMIN (07/31/16 8:00 AM) 16 BRMIN (07/31/16 7:45 AM) 20 BRMIN (07/31/16 7:33 AM) Respiratory Rate [14-20 BRMIN] 60 bpm (07/22/16 8:24 AM) Peripheral Pulse Rate [60-100 bpm] 66.364 kg (07/22/16 8:13 AM) Weight 20.99 m2 (07/22/16 8:13 AM) Body Mass Index Problem List Condition Effective Dates Status Health Status Informant FH: Diabetes 07/05/14 Active mellitus1 Hypertension(Confirm Resolved ed) Low back pain2 07/05/14 Active Lumbar 07/05/14 Active radiculopathy3 1Data migrated from [employer] on 04/11/15. 2Data migrated from [employer] on 04/11/15. 3Data migrated from [employer] on 04/11/15. Allergies, Adverse Reactions, Alerts Substance Reaction Severity Status NKDA Active Medications albuterol-ipratropium 2.5-0.5 mg inhalation solution 3 mL, Route: NEB, Drug Form: SOLN, Dosing Weight 66.364, kg, ONCE, STAT, Start d ate: 07/31/16 6:47:00 COLOR MIXER, Stop date: 07/31/16 6:47:00 COLOR MIXER Notes: (Same as: Evon) Start Date: 07/31/16 Stop Date: 07/31/16 Status: Discontinued aspirin 81 mg tablet, enteric coated 81 mg=1 tab, PO, Daily, # 90 tab, 3 Refill(s) Start Date: 07/22/16 Status: Ordered sodium chloride 0.9% 500 ml INJ 500 mL 500 mL, Rate: 25 ml/hr, Infuse over: 20 hr, Route: IV, Dosing Weight 66.364 kg, Total Volume: 500, Start date: 07/31/16 6:47:00 COLOR MIXER, Duration: 1 day, Stop date: 08/01/16 6:46:00 COLOR MIXER Start Date: 07/31/16 Stop Date: 07/31/16 Status: Discontinued Results No data available for this section Immunizations No data available for this section Procedures Procedure Date Related Diagnosis Body Site Arthroscopy of knee1 Cholecystectomy Epidural steroid injection2 Operation3 Operation Primary repair of inguinal hernia4 Shoulder repair 102 2x3 402/2005 Social History Social History Type Response Alcohol Never Smoking Status Never smoker; Exposure to Tobacco Smoke None; Cigarette Smoking Last 365 Days No; Reg Smoking Cessation Counseling No Assessment and Plan No data available for this section
--- OUTSIDE RECORDS SUMMARY | 2018-06-02 14:40 | XMS REPORT | Summary of Care ---
Author Author [facility] Organization [facility] Address Unknown Phone Unavailable Encounter HQ Avila_guillermo(FIN) [id number] Date(s): 11/22/16 - 11/22/16 [facility] [address] [place] [address]- [phone] Discharge Disposition: Home or Self Care Attending Physician: Chaz Lam MD Referring Physician: Chaz Lam MD Vital Signs No data available for [...] of inguinal hernia4 Shoulder repair 102/2006 2x3 307/2015 402/2005 Social History Social History Type Response Alcohol Never Smoking Status Never smoker; Exposure to Tobacco Smoke None; Cigarette Smoking Last 365 Days No; Reg Smoking Cessation Counseling Yes Assessment and Plan No data available for this section
--- OUTSIDE RECORDS SUMMARY | 2018-06-02 14:40 | XMS REPORT | Continuity of Care Document ---
Author Author [facility] Interface Address Unknown Phone Unavailable Problems Problem Status Onset Date Classification Date Reported Comments Source Calculus of kidney 11/19/2017 02/17/2018 [facility] N20.0 Active 11/11/2017 [facility] Cough 10/24/2017 01/23/2018 [facility] R05 Active 10/17/2017 [facility] Migraine, unspecified, not intractable, without status migrainosus 10/14/2017 01/14/2018 [facility] R51 HEADACHE Active 09/26/2017 [facility] UNK Active 03/28/2017 [facility] DX: M54.5=LOW BACK PAIN/M47.816=SPONDYLO Active 12/20/2016 [facility] DX: 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 11/20/2016 [facility] Discharge Diagnosis: Headache 08/23/2016 08/27/2016 [facility] HEADACHE Active 08/23/2016 [facility] 592.1=CALCULI, URETER/789.00=ABDOMINAL D Active 04/19/2015 [facility] Discharge Diagnosis: Acute gastroenteritis 03/08/2015 03/11/2015 [facility] Discharge Diagnosis: Food poisoning, unspecified 03/08/2015 03/11/2015 [facility] OBSTRUCTING URETEROLITHIASIS Active 03/08/2015 [facility] TROUBLE BREATHING Active 03/08/2015 [facility] ABDOMINAL PAIN Active 03/07/2015 [facility] FH: Diabetes mellitus<sup>1</sup> Active 07/05/2014 Problem 02/17/2018 Data migrated from [place] on 04/11/15. [facility] Low back pain<sup>2</sup> Active 07/05/2014 Problem 02/17/2018 Data migrated from [employer] on 04/11/15. [facility] Lumbar radiculopathy<sup>3</sup> Active 07/05/2014 Problem 02/17/2018 Data migrated from [employer] on 04/11/15. [facility] Discharge Diagnosis: Lumbago 07/01/2014 07/04/2014 [facility] BACK PAIN Active 07/01/2014 [facility] 724.4=COMPRESSION OF LUMBAR NERVE ROOT/7 Active 10/07/2013 [facility] 724.4,724.2 Active 06/18/2013 [facility] Hypertension Resolved Problem 02/17/2018 [facility] Cyst and mucocele of nose and nasal sinus 01/14/2018 [facility] Degenerative disease of nervous system, unspecified 01/14/2018 [facility] Other specified disorders of brain 01/14/2018 [facility] LUMBOSACRAL NEURITIS NOS Active [facility] LUMBAGO Active [facility] RESP SYSTEM DISEASE NEC Active [facility] CALCULUS OF URETER Active [facility] ABDMNAL PAIN UNSPCF SITE Active [facility] EPIGASTRIC PAIN Active [facility] ENCOUNTER FOR SCREENING FOR MALIGNANT NE Active [facility] SPONDYLOSIS W/O MYELOPATHY OR RADICULOPA Active [facility] LOW BACK PAIN Active [facility] RADICULOPATHY, LUMBAR REGION Active [facility] CALCULUS OF KIDNEY Active [facility] COUGH Active [facility] HEADACHE Active [facility] Medications Medication Details Route Status Patient Instructions Ordering Provider Order Date Source Senokot 17.2 mg, 2 tab, Route: PO, Drug Form: TAB, Dosing Weight 66.818, kg, Daily, Start date: 04/03/17 9:00:00 CDT, Duration: 30 day, Stop date: 05/02/17 9:00:00 CDTNotes: (Same as: Senokot) No Longer Active 04/03/2017 [facility] heparin sodium, porcine 2500 UNT/ML Injectable Solution 5,000 unit, 1 mL, Route: SUB-Q, Drug form: INJ, Q12H, Dosing Weight 66.818, kg, Start date: 04/03/17 8:00:00 CDT, Duration: 30 day, Stop date: 05/02/17 21:00:00 CDTNotes: porcine heparin No Longer Active 04/03/2017 [facility] Famotidine 20 MG Oral Tablet [Pepcid] 20 mg, 1 tab, Route: PO, Drug form: TAB, Q12H, Dosing Weight 66.818, kg, Start date: 04/02/17 21:00:00 CDT, Duration: 30 day, Stop date: 05/02/17 9:00:00 CDTNotes: (Same as: Pepcid) Inactive 04/03/2017 [facility] Docusate Sodium 100 MG Oral Capsule [Colace] 100 mg, 1 cap, Route: PO, Drug form: CAP, BID, Dosing Weight 66.818, kg, Start date: 04/02/17 17:00:00 CDT, Duration: 30 day, Stop date: 05/02/17 9:00:00 CDTNotes: (Same as: Colace) (Do Not Crush) Inactive 04/02/2017 [facility] Cefazolin 1 gm, 100 mL, Route: IVPB, Drug form: INJ, Q8H, Dosing Weight 66.818, kg, Start date: 04/02/17 16:00:00 CDT, Duration: 3 doses or times, Stop date: 04/03/17 8:00:00 CDT, ABX Indication: Surgical Prophylaxis Inactive 04/02/2017 [facility] Oxycodone Hydrochloride 5 MG Oral Tablet 10 mg, Route: PO, Drug form: TAB, ONCE, Dosing Weight 66.818, kg, PRN Pain Score 7-10, Start date: 04/02/17 14:20:00 CDT Inactive 04/02/2017 [facility] Morphine 4 mg, 1 mL, Route: IVP, Drug form: SOLN, Q5Min, Dosing Weight 66.818, kg, PRN Pain Score 7-10, Start date: 04/02/17 14:19:00 CDT, Duration: 3 doses or times, Stop date: Limited # of timesNotes: (Same as:MORPhine Sulfate) Inactive 04/02/2017 [facility] Fentanyl 50 microgram, 1 mL, Route: IVP, Drug form: INJ, Q5Min, Dosing Weight 66.818, kg, PRN Pain Score 7-10, Priority: Routine, Start date: 04/02/17 14:19:00 CDT, Duration: 2 doses or times, Stop date: Limited # of timesNotes: (Same as: Sublimaze) Preservative free. Inactive 04/02/2017 [facility] Flumazenil 0.2 mg, 2 mL, Route: IVP, Drug form: INJ, PRN, Dosing Weight 66.875, kg, PRN Benzodiazepine Reversal, Initial dose, Start date: 04/02/17 14:19:00 CDT, Duration: 30 day, Stop date: 05/02/17 14:18:00 C DTNotes: (Same as: Romazicon) Inactive 04/02/2017 [facility] Naloxone 0.4 mg, 1 mL, Route: IVP, Drug form: INJ, Q2MIN, Dosing Weight 66.875, kg, PRN Narcotic Reversal, Start date: 04/02/17 14:19:00 CDT, Duration: 8 doses or times, Stop date: Limited # of timesNotes: Same as Narcan Inactive 04/02/2017 [facility] Dexamethasone 4 mg, 1 mL, Route: IVP, Drug form: INJ, ONCE, Dosing Weight 66.818, kg, PRN Nausea & Vomiting, Start date: 04/02/17 14:19:00 CDT Inactive 04/02/2017 [facility] Diphenhydramine 12.5 mg, 0.25 mL, Route: IVP, Drug form: INJ, Q6H, Dosing Weight 66.818, kg, PRN Itching, Start date: 04/02/17 14:19:00 CDT, Duration: 30 day, Stop date: 05/02/17 14:18:00 CDTNotes: (Same as: Jose A witt) Inactive 04/02/2017 [facility] Albuterol 0.83 MG/ML Inhalant Solution 2.49 mg, 3 mL, Route: NEB, Drug form: SOLN, Q20Min, Dosing Weight 66.818, kg, PRN Wheezing, Priority: STAT, Start date: 04/02/17 14:19:00 CDT, Duration: 30 day, Stop date: 05/02/17 14:18:00 CDTNotes: SEE RT DOCUMENTATION (Same as: Proventil) Inactive 04/02/2017 [facility] Meperidine 12.5 mg, 0.25 mL, Route: IVP, Drug form: INJ, Q30Min, Dosing Weight 66.818, kg, PRN Other -See Comment, For shivering, Start date: 04/02/17 14:19:00 CDT, Duration: 2 doses or times, Stop date: Limited # of timesNotes: (Same As: Demerol) Inactive 04/02/2017 [facility] Ondansetron 4 mg, 2 mL, Route: IVP, Drug form: INJ, ONCE, Dosing Weight 66.875, kg, PRN Nausea & Vomiting, Start date: 04/02/17 14:19:00 CDTNotes: (Same as: Zofran) MEDICATION WASTE Product Size: 4 mg Product Wasted: _0__ mg Inactive 04/02/2017 [facility] Hydromorphone 0.5 mg, 0.5 mL, Route: IVP, Drug form: INJ, Q5Min, Dosing Weight 66.875, kg, PRN Pain Score 7-10, Start date: 04/02/17 14:19:00 CDT, Duration: 4 doses or times, Stop date: Limited # of times Inactive 04/02/2017 [facility] Hydralazine 10 mg, 0.5 mL, Route: IVP, Drug form: INJ, Q20Min, Dosing Weight 66.818, kg, PRN Elevated BP, Start date: 04/02/17 14:19:00 CDT, Duration: 2 doses or times, Stop date: Limited # of timesNotes: (Same as: Apresoline) Push over 5 minutes Inactive 04/02/2017 [facility] esmolol 10 mg, 1 mL, Route: IVP, Drug form: INJ, Q5Min, Dosing Weight 66.818, kg, PRN Other -See Comment, Start date: 04/02/17 14:19:00 CDT, Duration: 5 doses or times, Stop date: Limited # of timesNotes: (Same as: Brevibloc) Inactive 04/02/2017 [facility] Labetalol 10 mg, 2 mL, Route: IVP, Drug form: INJ, Q5Min, Dosing Weight 66.818, kg, PRN Elevated BP, Start date: 04/02/17 14:19:00 CDT, Duration: 5 doses or times, Stop date: Limited # of timesNotes: (Same as: No rmodyne, Trandate) Push over 2 minutes Give bolus over 2-3 minutes. Inactive 04/02/2017 [facility] Acetaminophen 1,000 mg, 2 tab, Route: PO, Drug form: TAB, ONCE, Dosing Weight 66.818, kg, PRN Pain Score 1-3, Start date: 04/02/17 14:19:00 CDT, Duration: 1 doses or times, Stop date: Limited # of timesNotes: Max acetaminophen 4000 mg/day (4 gm/day). (Same as: Tylenol Extra Strength) Inactive 04/02/2017 [facility] Oxycodone 5 mg, 1 tab, Route: PO, Drug form: TAB, Q4H, Dosing Weight 66.875, kg, PRN Pain Score 4-6, Start date: 04/02/17 14:19:00 CDT, Duration: 30 day, Stop date: 05/02/17 14:18:00 CDTNotes: (Same as: Roxicodone) Inactive 04/02/2017 [facility] Calcium Chloride 0.0014 MEQ/ML / Potassium Chloride 0.004 MEQ/ML / Sodium Chloride 0.103 MEQ/ML / Sodium Lactate 0.028 MEQ/ML Injectable Solution 1,000 mL, Rate: 125 ml/hr, Infuse over: 8 hr, Route: IV, Dosing Weight 66.818 kg, Total Volume: 1,000, Start date: 04/02/17 14:19:00 CDT, Duration: 30 day, Stop date: 05/02/17 14:18:00 CDT Inactive 04/02/2017 [facility] Acetaminophen 325 MG / Hydrocodone Bitartrate 5 MG Oral Tablet 1 tab, PO, Q4H, PRN Pain, # 60 tab, 0 Refill(s), given to patient Active 04/02/2017 [facility] Acetaminophen 325 MG / Hydrocodone Bitartrate 5 MG Oral Tablet 1 tab, Route: PO, Drug Form: TAB, Dosing Weight 66.818, kg, Q4H, PRN Pain Score 4-6, Start date: 04/02/17 12:51:00 CDT, Duration: 30 day, Stop date: 05/02/17 12:50:00 CDTNotes: (Same as: [place] 325/5) Do not exceed 4gm/day of acetaminophen. Inactive 04/02/2017 [facility] Zofran 4 mg, 2 mL, Route: IV, Drug form: INJ, Q8H, Dosing Weight 66.818, kg, PRN Nausea, Start date: 04/02/17 12:51:00 CDT, Duration: 30 day, Stop date: 05/02/17 12:50:00 CDTNotes: (Same as: Zofran) MEDICATION WASTE Product Size: 4 mg Product Wasted: __0 mg Inactive 04/02/2017 [facility] magnesium citrate 300 ml, Route: PO, Drug Form: LIQ, Dosing Weight 66.818, kg, ONCE, PRN Constipation, Start date: 04/02/17 12:51:00 CDTNotes: (Same as: Citrate of Magnesia) Concentration: 1.745 gm / 30 mL Inactive 04/02/2017 [facility] Dilaudid 1 mg, 1 mL, Route: IV, Drug form: INJ, Q3H, Dosing Weight 66.818, kg, PRN Pain Score 7-10, Start date: 04/02/17 12:51:00 CDT, Duration: 30 day, Stop date: 05/02/17 12:50:00 CDT Inactive 04/02/2017 [facility] Tylenol 650 mg, 2 tab, Route: PO, Drug form: TAB, Q4H, Dosing Weight 66.818, kg, PRN Pain 1-3/Temp > 100.4 F, Start date: 04/02/17 12:51:00 CDT, Duration: 30 day, Stop date: 05/02/17 12:50:00 CDTNotes: Do not exceed 4 gm/day. (Same as: Tylenol) Inactive 04/02/2017 [facility] sodium chloride 0.9% 1000 ml INJ 1,000 mL 1,000 mL, Rate: 75 ml/hr, Infuse over: 13.3 hr, Route: IV, Dosing Weight 66.818 kg, Total Volume: 1,000, Start date: 04/02/17 12:51:00 CDT, Duration: 30 day, Stop date: 05/02/17 12:50:00 CDT Inactive 04/02/2017 [facility] ePHEDrine (ANES) Route: IV, Drug form: INJ, ONCE, Stop date: 04/02/17 11:49:00 CDT Inactive 04/02/2017 [facility] rocuronium (ANES) Route: IV, Drug form: INJ, ONCE, Stop date: 04/02/17 11:04:00 CDT Inactive 04/02/2017 [facility] acetaminophen (ANES) Route: IV, Drug form: INJ, ONCE, Stop date: 04/02/17 11:04:00 CDT Inactive 04/02/2017 [facility] ondansetron (ANES) Route: IV, Drug form: INJ, ONCE, Stop date: 04/02/17 11:04:00 CDT Inactive 04/02/2017 [facility] dexamethasone (ANES) Route: IV, Drug form: INJ, ONCE, Stop date: 04/02/17 11:04:00 CDT Inactive 04/02/2017 [facility] famotidine (ANES) Route: IV, Drug form: INJ, ONCE, Stop date: 04/02/17 11:04:00 CDT Inactive 04/02/2017 [facility] propofol (ANES) Route: IV, Drug form: INJ, ONCE, Stop date: 04/02/17 10:59:00 CDT Inactive 04/02/2017 [facility] fentaNYL (ANES) Route: IV, Drug form: INJ, ONCE, Stop date: 04/02/17 10:59:00 CDT Inactive 04/02/2017 [facility] midazolam (ANES) Route: IV, Drug form: SOLN, ONCE, Stop date: 04/02/17 10:59:00 CDT Inactive 04/02/2017 [facility] lidocaine (ANES) Route: IV, Drug form: INJ, ONCE, Stop date: 04/02/17 10:59:00 CDT Inactive 04/02/2017 [facility] ceFAZolin (ANES) Route: IV, Drug form: INJ, ONCE, Stop date: 04/02/17 10:54:00 CDT Inactive 04/02/2017 [facility] LR 1000 mL INJ (ANES) Route: IV, Total Volume: 1,000, Start date: 04/02/17 9:58:00 CDT, Stop date: 04/02/17 10:58:00 CDT Inactive 04/02/2017 [facility] Albuterol 0.833 MG/ML / Ipratropium [place] 0.167 MG/ML Inhalant Solution 3 mL, Route: NEB, Dosing Weight 66.818, kg, ONCE, STAT, Start date: 04/02/17 9:49:00 CDT, Stop date: 04/02/17 9:49:00 CDT Inactive 04/02/2017 [facility] Calcium Chloride 0.0014 MEQ/ML / Potassium Chloride 0.004 MEQ/ML / Sodium Chloride 0.103 MEQ/ML / Sodium Lactate 0.028 MEQ/ML Injectable Solution 1,000 mL, Rate: 25 ml/hr, Infuse over: 40 hr, Route: IV, Dosing Weight 66.818 kg, Total Volume: 1,000, Start date: 04/02/17 9:49:00 CDT, Duration: 30 day, Stop date: 05/02/17 9:48:00 CDT Inactive 04/02/2017 [facility] Marcaine HCl with Epinephrine 0.5%-1:200,000 injectable solution 30 mL, Route: InFILtration(local), Drug Form: INJ, Dosing Weight 66.818, kg, ONCE, Start date: 04/02/17 7:14:00 CDT, Stop date: 04/02/17 7:14:00 CDTNotes: (bupivacaine-epi 0.5%-1:200,000 30 ml VL) Not for use in continuous infusion. (Same As: Marcaine w/Epi) Inactive 04/02/2017 [facility] Albuterol 0.833 MG/ML / Ipratropium [place] 0.167 MG/ML Inhalant Solution 3 mL, Route: NEB, Drug Form: SOLN, Dosing Weight 66.364, kg, ONCE, STAT, Start date: 07/31/16 6:47:00 SORT MANAGER, Stop date: 07/31/16 6:47:00 CSTNotes: (Same as: Duoneb) Inactive 07/31/2016 [facility] Sodium Chloride 0.154 MEQ/ML Injectable Solution 500 mL, Rate: 25 ml/hr, Infuse over: 20 hr, Route: IV, Dosing Weight 66.364 kg, Total Volume: 500, Start date: 07/31/16 6:47:00 SORT MANAGER, Duration: 1 day, Stop date: 08/01/16 6:46:00 SORT MANAGER Inactive 07/31/2016 [facility] aspirin 81 mg tablet, enteric coated 81 mg=1 tab, PO, Daily, # 90 tab, 3 Refill(s) Active 07/22/2016 [facility] Acetaminophen 325 MG / Hydrocodone Bitartrate 5 MG Oral Tablet [Hend[place] 5/325] 1 tab, PO, Q6H, PRN Pain, X 15 day, # 30 tab, 0 Refill(s) Active 03/10/2015 [facility] Pneumovax 23 0.5 mL, Route: IM, Drug Form: INJ, ONCE, Start date: 03/10/15 11:22:00, Stop date: 03/10/15 11:22:00Notes: (Same as: Pneumovax 23) Refrigerate Inactive 03/10/2015 [facility] Metoprolol 1 mg, 1 mL, Route: IVP, Drug form: INJ, Q5Min, Dosing Weight 64.6, kg, PRN Other -See Comment, Start date: 03/09/15 12:38:00, Duration: 5 doses or times, Stop date: Limited # of timesNotes: (Same as: Lopressor) Push over 2 minutes No Longer Active 03/09/2015 [facility] Fentanyl 25 microgram, 0.5 mL, Route: IVP, Drug form: INJ, Q5Min, Dosing Weight 64.6, kg, PRN Pain Score 4-6, Start date: 03/09/15 12:38:00, Duration: 4 doses or times, Stop date: Limited # of timesNotes: (Same as: Sublimaze) Preservative free. No Longer Active 03/09/2015 [facility] Flumazenil 0.2 mg, 2 mL, Route: IVP, Drug form: INJ, PRN, Dosing Weight 64.6, kg, PRN Benzodiazepine Reversal, Initial dose, Start date: 03/09/15 12:38:00, Duration: 30 day, Stop date: 04/08/15 12:37:00Notes: (Same as: Romazicon) No Longer Active 03/09/2015 [facility] Morphine 2 mg, 1 mL, Route: IVP, Drug form: INJ, Q5Min, Dosing Weight 64.6, kg, PRN Pain Score 4-6, Start date: 03/09/15 12:38:00, Duration: 5 doses or times, Stop date: Limited # of timesNotes: (Same as:MORP frida Sulfate) No Longer Active 03/09/2015 [facility] Naloxone 0.04 mg, 0.1 mL, Route: IVP, Drug form: INJ, Q2MIN, Dosing Weight 64.6, kg, PRN Narcotic Reversal, Start date: 03/09/15 12:38:00, Duration: 8 doses or times, Stop date: Limited # of timesNotes: Same as Narcan No Longer Active 03/09/2015 [facility] Ondansetron 4 mg, 2 mL, Route: IVP, Drug form: INJ, ONCE, Dosing Weight 64.6, kg, PRN Nausea & Vomiting, Start date: 03/09/15 12:38:00Notes: (Same as: Alf) MEDICATION WASTE Product Size: 4 mg Product Wasted: ___ mg No Longer Active 03/09/2015 [facility] Hydralazine 10 mg, 0.5 mL, Route: IVP, Drug form: INJ, Q20Min, Dosing Weight 64.6, kg, PRN Elevated BP, Start date: 03/09/15 12:38:00, Duration: 2 doses or times, Stop date: Limited # of timesNotes: (Same as: Ap resoline) Push over 5 minutes No Longer Active 03/09/2015 [facility] oxybutynin 5 mg oral tablet 5 mg=1 tab, PO, TID, PRN Other- See Comments, # 30 tab, 0 Refill(s) Active 03/09/2015 [facility] Tamsulosin hydrochloride 0.4 MG Oral Capsule [Flomax] 0.4 mg=1 cap, PO, Daily, # 30 cap, 0 Refill(s) Active 03/09/2015 [facility] Phenazopyridine hydrochloride 100 MG Oral Tablet [Pyridium] 100 mg=1 tab, PO, TID, PRN Dysuria, X 2 day, # 6 tab, 0 Refill(s) No Longer Active 03/09/2015 [facility] pneumococcal capsular polysaccharide type 1 vaccine / pneumococcal capsular polysaccharide type 10A vaccine / pneumococcal capsular polysaccharide type 11A vaccine / pneumococcal capsular polysaccharide type 12F vaccine / pneumococcal capsular polysacchar 0.5 mL, Route: IM, Drug Form: INJ, Daily, Start date: 03/09/15 9:00:00, Duration: 1 doses or times, Stop date: 03/09/15 9:00:00Notes: (Same as: Pneumovax 23) Refrigerate No Longer Active 03/09/2015 [facility] Flomax 0.4 mg, 1 cap, Route: PO, Drug form: CAP, Daily, Dosing Weight 72.727, kg, Start date: 03/09/15 9:00:00, Duration: 30 day, Stop date: 04/07/15 9:00:00Notes: (Same As: Flomax) "Do Not Crush" No Longer Active 03/09/2015 [facility] Calcium Chloride 0.0014 MEQ/ML / Potassium Chloride 0.004 MEQ/ML / Sodium Chloride 0.103 MEQ/ML / Sodium Lactate 0.028 MEQ/ML Injectable Solution 1,000 mL, Rate: 25 ml/hr, Infuse over: 40 hr, Route: IV, Dosing Weight 64.6 kg, Total Volume: 1,000, Start date: 03/09/15 8:58:00, Duration: 30 day, Stop date: 04/08/15 8:57:00 Inactive 03/09/2015 [facility] glucosamine 500 mg oral capsule 500 mg=1 cap, PO, Daily, # 30 cap, 0 Refill(s) Active 03/09/2015 [facility] Calcium Citrate 250 mg, PO, Daily, 0 Refill(s) Active 03/09/2015 [facility] Aspirin 81 mg, PO, Daily, 0 Refill(s) Inactive 03/09/2015 [facility] omega-3 polyunsaturated fatty acids PO, 0 Refill(s) Active 03/09/2015 [facility] Ondansetron 4 mg, 2 mL, Route: IVP, Drug form: INJ, Q6H, Dosing Weight 72.727, kg, PRN Nausea & Vomiting, Start date: 03/09/15 4:58:00, Duration: 30 day, Stop date: 04/08/15 4:57:00Notes: (Same as: Alf) MEDICATION WASTE Product Size: 4 mg Product Wasted: ___ mg No Longer Active 03/09/2015 [facility] Dilaudid 0.5 mg, 0.5 mL, Route: IVP, Drug form: INJ, Q3H, Dosing Weight 72.727, kg, Priority: STAT, Start date: 03/09/15 4:58:00, Duration: 30 day, Stop date: 04/08/15 2:00:00 No Longer Active 03/09/2015 [facility] Sodium Chloride 0.154 MEQ/ML Injectable Solution 1,000 mL, Rate: 125 ml/hr, Infuse over: 8 hr, Route: IV, Dosing Weight 72.727 kg, Total Volume: 1,000, Start date: 03/09/15 4:58:00, Duration: 30 day, Stop date: 04/08/15 4:57:00 No Longer Active 03/09/2015 [facility] Saline Flush 0.9% 10 ml, Route: IVP, Drug Form: INJ, Dosing Weight 72.727, kg, PRN, PRN Line Flush, Start date: 03/09/15 4:58:00, Duration: 30 day, Stop date: 04/08/15 4:57:00Notes: (Same as: BD Posiflush) No Longer Active 03/09/2015 [facility] Zofran 4 mg, Route: IVP, Drug form: INJ, ONCE, Dosing Weight 72.727, kg, Priority: STAT, Start date: 03/09/15 3:09:00, Stop date: 03/09/15 3:09:00 Inactive 03/09/2015 [facility] Morphine 4 mg, Route: IVP, Drug form: INJ, ONCE, Dosing Weight 72.727, kg, Priority: STAT, Start date: 03/09/15 3:09:00, Stop date: 03/09/15 3:09:00 Inactive 03/09/2015 [facility] Acetaminophen 300 MG / Codeine Phosphate 30 MG Oral Tablet [Tylenol with Codeine #3] 1 - 2 tab, PO, Q4H, PRN Pain, X 2 day, # 20 tab, 0 Refill(s) No Longer Active 03/08/2015 [facility] Acetaminophen 325 MG / Hydrocodone Bitartrate 5 MG Oral Tablet [[place] 5/325] 1 tab, Route: PO, Drug Form: TAB, Dosing Weight 65.909, kg, ONCE, STAT, Start date: 03/08/15 4:02:00, Stop date: 03/08/15 4:02:00 Inactive 03/08/2015 [facility] loperamide 2 mg oral tablet 2 mg=1 tab, PO, Q4H, PRN Loose Stools, X 10 day, # 12 tab, 0 Refill(s) Active 03/08/2015 [facility] Ondansetron 4 MG Oral Tablet [Zofran] 4 mg=1 tab, PO, Q8H, PRN Nausea/vomiting, X 10 day, # 30 tab, 0 Refill(s) Active 03/08/2015 [facility] Loperamide 4 mg, 2 cap, Route: PO, Drug form: CAP, ONCE, Dosing Weight 65.909, kg, Priority: STAT, Start date: 03/08/15 2:57:00, Stop date: 03/08/15 2:57:00Notes: (Same as: Imodium) MAX adult dose is 8 caps/day Inactive 03/08/2015 [facility] Zofran ODT 4 mg, Route: PO, Drug form: TABDIS, ONCE, Dosing Weight 65.909, kg, Priority: STAT, Start date: 03/08/15 2:57:00, Stop date: 03/08/15 2:57:00 Inactive 03/08/2015 [facility] Acetaminophen 650 mg, Route: PO, Drug form: TAB, ONCE, Dosing Weight 65.909, kg, Priority: STAT, Start date: 03/08/15 2:57:00, Stop date: 03/08/15 2:57:00 Inactive 03/08/2015 [facility] Cyclobenzaprine hydrochloride 10 MG Oral Tablet [Flexeril] 10 mg, PO, TID, Muscle Spasm, # 30 tab, 0 Refill(s) Active 07/01/2014 [facility] ibuprofen 800 mg oral tablet 800 mg, PO, Q8H, Pain, Take with food, # 30 tab, 0 Refill(s)Special Instructions: Take with food Active 07/01/2014 [facility] Valium 5 mg, Route: PO, ONCE, Dosing Weight 67.273, kg, Priority: STAT, Start date: 07/01/14 11:35:00, Stop date: 07/01/14 11:35:00 Inactive 07/01/2014 [facility] Ketorolac 60 mg, Route: IM, Drug form: INJ, ONCE, Dosing Weight 67.273, kg, Priority: STAT, Start date: 07/01/14 11:34:00, Stop date: 07/01/14 11:34:00 Inactive 07/01/2014 [facility] Dexamethasone 10 mg, Route: IM, ONCE, Dosing Weight 67.273, kg, Priority: STAT, Start date: 07/01/14 11:34:00, Stop date: 07/01/14 11:34:00 Inactive 07/01/2014 [facility] Allergies, Adverse Reactions, Alerts Substance Category Reaction Severity Reaction type Status Date Reported Comments Source Immunizations Immunization Date Given Site Status Last Updated Comments Source Results Order Name Results Value Reference Range Date Interpretation Comments Source Abdomen AP DX Abdomen AP DX 1 VIEW ABDOMEN INDICATION: Patient has history of left renal stones. COMPARISON: 05/15/2015 [facility]. There are a few small calcified pelvic phleboliths. Surgical clips right upper quadrant consistent with prior cholecystectomy. Soft tissues and bowel gas pattern are otherwise normal. Degenerative changes of the lumbar spine. Bones otherwise normal. The lung bases are not included in the [id number]. IMPRESSION: Normal exam. No radiopaque urinary stones identified. END IMPRESSION SL: [id number] 11/11/2017 - - Read by: River Miranda MD Dictated Date/time: 11/11/17 16:39 Electronically Signed by: River Miranda MD 11/11/17 16:41 FINAL REPORT [facility] [facility] Chest 2 views DX Clinical Indication: - R05 Cough. Sore throat. Comparison: None FINDINGS: PA and lateral chest radiographs were obtained. The lungs are adequately inflated and clear. There is no focal airspace consolidation, pleural effusion or pneumothorax. Cardiac silhouette is within normal limits. The bony structures are unremarkable. IMPRESSION: No acute radiographic abnormality of the thorax. SL: [id number] 10/17/2017 - - Read by: Radhames Patel MD Dictated Date/time: 10/17/17 15:59 Electronically Signed by: Radhames Patel MD 10/17/17 15:59 FINAL REPORT [facility] Brain wo contrast MRI Brain wo contrast MRI Clinical Indication: New onset severe headaches with no previous history. Symptoms have now currently resolved. No previous injury. History of cataract surgery. Comparison: Comparison is made to CT study of 08/23/2016 TECHNIQUE: Multiplanar pre- and post-gadolinium contrast-enhanced MRI of the brain is performed on a 1.5 Khalida magnet. Contrast: None. FINDINGS: BRAIN PARENCHYMA: There is no acute cortical infarct, parenchymal hemorrhage or an intra-axial mass. Minimal cortical atrophy the supratentorial brain is present. There is minimal subcortical areas of gliosis. There is normal flow from the 4th portions of both vertebral arteries, the basilar artery and intracranial carotid arteries. The anterior posterior communicate arteries are patent. There is a partial empty sella. There is a superior position of the neurohypophysis. There is no cerebellar tonsillar ectopia. The cochlea, vestibule and 7th and 8th nerve fascicles in normal. CEREBELLOPONTINE REGIONS AND SKULL BASE: The cerebellopontine angles appear unremarkable. The skull base, craniocervical junction, and brainstem are normal. The optic chiasm is normal. The sellar and pineal regions are unremarkable. VENTRICLES: The ventricles are normal in size and configuration. The basilar cisterns are normal. VESSELS: The venous sinuses are grossly unremarkable. The expected intracranial flow voids are present. ORBITS, VISUALIZED PARANASAL SINUSES AND MASTOIDS: There is a 1 cm mucous retention cyst in the left maxillary sinus. The orbital fossa contents are normal. The mastoid air cells are clear. IMPRESSION: There is no acute cortical infarct, parenchymal hemorrhage or an intra-axial mass. SL: VINICIO 10/08/2017 - - Read by: Yared Snow MD Dictated Date/time: 10/08/17 12:09 Electronically Signed by: Yared Snow MD 10/08/17 12:13 FINAL REPORT [facility] BLOOD BANK RESULTS ABO/Rh O POS 04/01/2017 [facility] BLOOD BANK RESULTS Antibody Scrn Negative (04/01/17 4:48 PM) 04/01/2017 [facility] CHEM PANEL eGFR 84 mL/min/1.73m2 04/01/2017 Result Comment: The eGFR is calculated using the [...] from the National Kidney Disease Education Program (NKDEP) which additionally recommends that when the eGFR is used in patients with extremes of body mass index for purposes of drug dosing, the eGFR should be multiplied by the estimated BMI. [employer] CHEM PANEL Bili Total 0.6 mg/dL 0.2 - 1.3 04/01/2017 [facility] CHEM PANEL Alk Phos 92 unit/L 39 - 136 04/01/2017 [facility] CHEM PANEL AST 19 unit/L 0 - 37 04/01/2017 [facility] CHEM PANEL Sodium Lvl 138 meq/L 135 - 145 04/01/2017 [facility] CHEM PANEL Creatinine Lvl 0.91 mg/dL 0.50 - 1.40 04/01/2017 [facility] CHEM PANEL BUN 29 mg/dL 7 - 22 04/01/2017 [facility] CHEM PANEL Glucose Lvl 68 mg/dL 70 - 99 04/01/2017 [facility] CHEM PANEL Chloride Lvl 103 meq/L 95 - 109 04/01/2017 [facility] CHEM PANEL Potassium Lvl 4.7 meq/L 3.5 - 5.1 04/01/2017 [facility] CHEM PANEL ALT 25 unit/L 0 - 65 04/01/2017 [facility] CHEM PANEL Albumin Lvl 3.5 g/dL 3.5 - 5.0 04/01/2017 [facility] CHEM PANEL Total Protein 6.8 g/dL 6.4 - 8.4 04/01/2017 [facility] CHEM PANEL Calcium Lvl 8.8 mg/dL 8.5 - 10.5 04/01/2017 [facility] CHEM PANEL CO2 34 meq/L 24 - 32 04/01/2017 [facility] CHEM PANEL Globulin 3.3 g/dL 2.7 - 4.2 04/01/2017 [facility] CHEM PANEL A/G Ratio 1.1 0.7 - 1.6 04/01/2017 [facility] CHEM PANEL B/C Ratio 32 6 - 25 04/01/2017 [facility] CHEM PANEL AGAP 5.7 meq/L 10.0 - 20.0 04/01/2017 [facility] HEMATOLOGY Segs-Bands # 3.9 K/CMM 1.5 - 8.1 04/01/2017 [facility] HEMATOLOGY Monocytes # 0.6 K/CMM 0.0 - 0.8 04/01/2017 [facility] HEMATOLOGY Lymphocytes # 1.5 K/CMM 1.0 - 5.5 04/01/2017 [facility] HEMATOLOGY Eosinophils # 0.1 K/CMM 0.0 - 0.5 04/01/2017 [facility] HEMATOLOGY Eosinophils 1.5 % 0.0 - 4.0 04/01/2017 [facility] HEMATOLOGY Basophils 0.8 % 0.0 - 1.0 04/01/2017 [facility] HEMATOLOGY Segs 62.8 % 45.0 - 75.0 04/01/2017 [facility] HEMATOLOGY Lymphocytes 24.4 % 20.0 - 40.0 04/01/2017 [facility] HEMATOLOGY Monocytes 10.5 % 2.0 - 12.0 04/01/2017 [facility] INR 1.15 0.85 - 1.17 04/01/2017 [facility] PT 14.9 s 12.0 - 14.7 04/01/2017 [facility] PTT 25.6 s 22.9 - 35.8 04/01/2017 [facility] MCV 93.7 fL 80.0 - 94.0 04/01/2017 [facility] MCH 31.5 pg 27.0 - 31.0 04/01/2017 [facility] MCHC 33.6 g/dL 32.0 - 36.0 04/01/2017 [facility] RDW 13.5 % 11.5 - 14.5 04/01/2017 [facility] Platelet 175 K/CMM 133 - 450 04/01/2017 [facility] MPV 7.4 fL 7.4 - 10.4 04/01/2017 [facility] WBC 6.1 K/CMM 3.7 - 10.4 04/01/2017 [facility] RBC 4.67 M/CMM 4.70 - 6.10 04/01/2017 [facility] Hct 43.8 % 42.0 - 54.0 04/01/2017 [facility] Hgb 14.7 g/dL 14.0 - 18.0 04/01/2017 [facility] Spine lumbar wo contrast CT Spine lumbar wo contrast CT Clinical Indication: lumbago; lumbar spondylosis; patient states he has a lot of lower back pain and they think he might have bone spurs Comparison: CT of the abdomen and pelvis 03/09/2015, lumbar spine magnetic resonance imaging 11/22/2016 TECHNIQUE: Sequential trans-axial images were obtained with a multi-detector helical CT. Coronal and sagittal reconstructions were obtained. CT Radiation Dose DLP 335 mGy-cm FINDINGS: ALIGNMENT AND GENERAL ASSESSMENT: There are 5 nonrib-bearing lumbar vertebral segments. There is normal alignment of the lumbar spine. The anterior and posterior paraspinal soft tissues are unremarkable. There are no fractures or subluxations of the lumbar spine. There are no pars interarticularis defects and no spondylolisthesis. The facet joints are well aligned. Endplate degenerative changes at multiple levels with subchondral cysts and a few small Schmorl's nodes. Small anterior osteophytes most notably at L2- L3 and L3-L4. DISK SPACES AND SOFT TISSUES: MRI has higher sensitivity and specificity for disc and soft tissue disease. T12-L1: The disk is unremarkable. The facet joints appear unremarkable. There is no central or foraminal stenosis. L1-L2: The disk is unremarkable. The facet joints appear unremarkable. There is no central or foraminal stenosis. L2-L3: Posterior disc bulge.. The facet joints appear unremarkable. Bilateral foraminal stenosis. L3-L4: Posterior disc bulge.. The facet joints appear unremarkable. Bilateral foraminal stenosis. L4-L5: Posterior disc bulge.. The facet joints appear unremarkable. Bilateral foraminal stenosis. L5-S1: The disk is unremarkable. The facet joints appear unremarkable. There is no central or foraminal stenosis. If there is further concern, CT myelogram or MRI of the lumbar spine may be performed for complete assessment. Other findings: Partially visualized left renal cyst. Cholecystectomy clips. IMPRESSION: 1. Mild to moderate degenerative changes throughout the lumbar spine, which are better appreciated on the lumbar spine MRI 11/22/2016. 2. There is no significant facet hypertrophy or posterior disc-osteophyte complex formation. SL: [id number] 12/23/2016 - - Read by: Severiano Joshi MD Dictated Date/time: 12/23/16 15:08 Electronically Signed by: Severiano Joshi MD 12/23/16 15:21 FINAL REPORT [facility] Spine lumbar wo contrast MRI Spine lumbar wo contrast MRI MRI LUMBAR SPINE WITHOUT CONTRAST INDICATION: Chronic lumbar back pain, M47.816 Spondylosis without myelopathy or radiculopathy, lumbar region - As per pt c/o chronic lower back. COMPARISON: Lumbar spine radiograph 07/01/2014, MRI lumbar spine 05/09/2014 DISCUSSION: Image detail is degraded by motion artifacts. The usual five nonrib-bearing lumbar-type vertebral bodies are presumed present. Alignment: Vertebral body alignment is within normal limits. Vertebral bodies: Degenerative endplate changes are noted at multiple levels, most prominent at L3-L4. The vertebral bodies are otherwise normal in height and signal, from T12 through S3. Distal spinal cord: Normal in signal and morphology. The tip of the conus is at the L1-L2 level. Paraspinal soft tissues: Small bilateral renal cysts are noted. Disc spaces, spinal canal and foramina: T12-L1: The disc is normal in height and signal. There is bilateral facet arthrosis, without spinal canal or foraminal stenosis. L1-L2: There is annular fissure of the disc. Disc height is maintained. Disc bulge and facet arthrosis result in mild bilateral foraminal stenosis. The spinal canal is patent. L2-L3: There is annular fissure of the disc. Disc height is maintained. Disc bulge, buckling of the ligamentum flavum, and facet arthrosis contribute to mild to moderate spinal canal stenosis, moderate right foraminal stenosis, and moderate to severe left foraminal stenosis. L3-L4: There is annular fissure of the disc and mild loss of disc height. Disc bulge, buckling of the ligamentum flavum, and facet arthrosis result in mild spinal canal stenosis, moderate right foraminal stenosis, and severe left foraminal stenosis. L4-L5: The disc is normal in height and signal. Disc bulge, buckling of the ligamentum flavum, and facet hypertrophy result in mild spinal canal stenosis and moderate to severe bilateral foraminal stenosis. There is interval appearance of a 7 mm midline posterior extradural cyst, a probable ganglion cyst of the ligamentum flavum. L5-S1: The disc is normal in height and signal. There is no significant arthrosis. The spinal canal and foramina are patent. IMPRESSION: 1. Spondylosis results in varying degrees of spinal canal and foraminal stenosis, as described. Spinal canal stenosis the worst at L2-L3, appearing mild to moderate. Foraminal stenosis is most severe on the left side, at L3-L4. 2. Annular fissure of the L1-L2 through L3-L4 discs. 3. Interval appearance of a 7 mm ganglion cyst of the ligamentum flavum, at L4-L5, contributing to mild spinal canal stenosis. 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 Comparison: None TECHNIQUE: CT images were obtained from the foramen magnum to the vertex without the use of intravenous contrast on a multidetector CT. Coronal and sagittal reformatted images were prepared. DLP: 981.84 mGy-cm. FINDINGS: BRAIN PARENCHYMA: 1. Mild diffuse age appropriate atrophy. 2. No evidence of acute intracranial hemorrhage, mass lesion, mass effect, midline shift, or extra-axial fluid collection. Incidental empty sella. VENTRICLES: The lateral ventricles, third ventricle, fourth ventricle, and basilar cisterns are appropriate for degree of atrophy present. PARANASAL SINUSES: The visualized portions of the paranasal sinuses are clear. MASTOIDS: Clear. ORBITS AND SOFT TISSUES: The visualized portions of the orbits are normal. SKULL: No acute fracture or suspicious osseous lesion. IMPRESSION: 1. Mild diffuse age appropriate atrophy. SL: CATY- 08/23/2016 - - Read by: Jr Del Real MD Dictated Date/time: 08/23/16 23:16 Electronically Signed by: Jr Del Real MD 08/23/16 23:18 FINAL REPORT [facility] CHEM PANEL eGFR 91 mL/min/1.73m2 05/15/2015 Result Comment: The eGFR is calculated using the [...] from the National Kidney Disease Education Program (NKDEP) which additionally recommends that when the eGFR is used in patients with extremes of body mass index for purposes of drug dosing, the eGFR should be multiplied by the estimated BMI. [facility] CHEM PANEL POC Creatinine 0.8 mg/dL 0.5 - 1.4 05/15/2015 [facility] Intravenous Pyelogram DX Intravenous Pyelogram DX IVP WITH TOMOGRAMS: Preliminary images show no evidence of opaque urinary tract calculus. Moderate degenerative changes in the lumbar spine are noted. Surgical clips in the gallbladder fossa are seen. Following intravenous injection of contrast, there is symmetric excretion into the kidneys which are normal in size, position and contour. The pelvicalyceal systems and ureters show no filling defects, mass displacement or obstruction. The filling defect in the left renal pelvis seen on the CT of 03/09/2015 is no longer visualized. There has been resolution of mild left hydronephrosis. The bladder base is elevated consistent with an enlarged prostate demonstrated on the previous CT. Mild trabeculation of the bladder wall is noted. The bladder is otherwise unremarkable with minimal postvoid residual. IMPRESSION: 1. Prostate enlargement. 2. Otherwise negative IVP with tomograms. SL:13 05/15/2015 - - Read by: Severiano Kaplan MD Dictated Date/time: 05/15/15 11:45 Electronically Signed by: Severiano Kaplan MD 05/15/15 11:50 FINAL REPORT [facility] ELECTROLYTES AGAP 12.9 meq/L 10.0 - 20.0 03/10/2015 [facility] ELECTROLYTES eGFR 55 mL/min/1.73m2 03/10/2015 Result Comment: The eGFR is calculated using the [...] from the National Kidney Disease Education Program (NKDEP) which additionally recommends that when the eGFR is used in patients with extremes of body mass index for purposes of drug dosing, the eGFR should be multiplied by the estimated BMI. [facility] ELECTROLYTES Calcium Lvl 7.5 mg/dL 8.5 - 10.5 03/10/2015 [facility] ELECTROLYTES CO2 24 meq/L 24 - 32 03/10/2015 [facility] ELECTROLYTES Creatinine Lvl 1.3 mg/dL 0.5 - 1.4 03/10/2015 [facility] ELECTROLYTES BUN 21 mg/dL 7 - 22 03/10/2015 [facility] ELECTROLYTES Glucose Lvl 88 mg/dL 70 - 99 03/10/2015 [facility] ELECTROLYTES Chloride Lvl 106 meq/L 95 - 109 03/10/2015 [facility] ELECTROLYTES Potassium Lvl 3.9 meq/L 3.5 - 5.1 03/10/2015 [facility] ELECTROLYTES Sodium Lvl 139 meq/L 135 - 145 03/10/2015 [facility] HEMATOLOGY RDW 13.4 % 11.5 - 14.5 03/10/2015 [facility] MCHC 33.9 g/dL 32.0 - 36.0 03/10/2015 [facility] MCH 31.8 pg 27.0 - 31.0 03/10/2015 [facility] RBC 4.46 M/CMM 4.70 - 6.10 03/10/2015 [facility] WBC 9.5 K/CMM 3.7 - 10.4 03/10/2015 [facility] MPV 8.4 fL 7.4 - 10.4 03/10/2015 [facility] Platelet 152 K/CMM 133 - 450 03/10/2015 [facility] MCV 93.7 fL 80.0 - 94.0 03/10/2015 [facility] Hct 41.8 % 42.0 - 54.0 03/10/2015 [facility] Hgb 14.2 g/dL 14.0 - 18.0 03/10/2015 [facility] HEMATOLOGY Eosinophils 0.8 % 0.0 - 4.0 03/10/2015 [facility] HEMATOLOGY Monocytes 12.4 % 2.0 - 12.0 03/10/2015 [facility] Lymphocytes 17.6 % 20.0 - 40.0 03/10/2015 [facility] Eosinophils # 0.1 K/CMM 0.0 - 0.5 03/10/2015 [facility] Segs-Bands # 6.5 K/CMM 1.5 - 8.1 03/10/2015 [facility] Basophils 0.5 % 0.0 - 1.0 03/10/2015 [facility] Segs 68.7 % 45.0 - 75.0 03/10/2015 [facility] Monocytes # 1.2 K/CMM 0.0 - 0.8 03/10/2015 [facility] Lymphocytes # 1.7 K/CMM 1.0 - 5.5 03/10/2015 [facility] Renal pyelogram retrograde DX Renal pyelogram retrograde DX LEFT RETROGRADE PYELOGRAPHY. HISTORY: Left distal ureteral calculus, left hydronephrosis. COMMENT: 11 digital C-arm intraprocedural images of the abdomen and pelvis were obtained during left retrograde pyelography and stent placement. The CT scan of the abdomen and pelvis without contrast performed lower today was reviewed. It is indicated the fluoroscopy time was 1.7 seconds. FINDINGS: Initially, the left ureteral orifice was cannulated left retrograde pyelography was performed. This demonstrates mild left hydronephrosis and hydroureter. Subsequent images demonstrate placement of a left double-J ureteral stent which appear to be in good position with the upper coil in the left renal pelvis the lower coil in the region of the bladder. SL: 13 Abhishek Díaz M.D. 03/09/2015 - - Read by: Abhishek Díaz MD Dictated Date/time: 03/09/15 14:08 Electronically Signed by: Abhishek Díaz MD 03/09/15 14:10 FINAL REPORT [facility] URINE AND STOOL UA Color Ltyellow 03/09/2015 [facility] URINE AND STOOL UA Spec Grav >=1.050 *ABN* (03/09/15 4:14 AM) <=1.030 03/09/2015 [facility] URINE AND STOOL UA Urobilinogen <=1.0 mg/dL 0.1 - 1.0 03/09/2015 [facility] URINE AND STOOL UA Sq Epi None Seen 03/09/2015 [facility] URINE AND STOOL UA Bili Negative *NA* (03/09/15 4:14 AM) Negative 03/09/2015 [facility] URINE AND STOOL UA Blood Negative (03/09/15 4:14 AM) Negative 03/09/2015 [facility] URINE AND STOOL UA Nitrite Negative (03/09/15 4:14 AM) Negative 03/09/2015 [facility] URINE AND STOOL UA WBC 1 /HPF 0 - 5 03/09/2015 [facility] URINE AND STOOL UA Leuk Est Negative (03/09/15 4:14 AM) Negative 03/09/2015 [facility] URINE AND STOOL UA Ketones Trace mg/dL Negative mg/dL 03/09/2015 [facility] URINE AND STOOL UA Glucose 50 mg/dL Negative mg/dL 03/09/2015 [facility] URINE AND STOOL UA Mucus Few /LPF None Seen /LPF 03/09/2015 [facility] URINE AND STOOL UA RBC 4 /HPF 0 - 2 03/09/2015 [facility] URINE AND STOOL UA Turbidity Clear (03/09/15 4:14 AM) Clear 03/09/2015 [facility] URINE AND STOOL UA Protein Negative mg/dL Negative mg/dL 03/09/2015 [facility] URINE AND STOOL UA pH 5.0 5.0 - 8.0 03/09/2015 [facility] CHEM PANEL Lipase Lvl 174 unit/L 73 - 393 03/09/2015 [facility] CHEM PANEL Amylase Lvl 85 unit/L 25 - 115 03/09/2015 [facility] ELECTROLYTES Chloride Lvl 105 meq/L 95 - 109 03/09/2015 [facility] ELECTROLYTES Potassium Lvl 4.0 meq/L 3.5 - 5.1 03/09/2015 [facility] ELECTROLYTES Sodium Lvl 141 meq/L 135 - 145 03/09/2015 [facility] ELECTROLYTES eGFR 40 mL/min/1.73m2 03/09/2015 Result Comment: The eGFR is calculated using the [...] from the National Kidney Disease Education Program (NKDEP) which additionally recommends that when the eGFR is used in patients with extremes of body mass index for purposes of drug dosing, the eGFR should be multiplied by the estimated BMI. [facility] ELECTROLYTES BUN 34 mg/dL 7 - 22 03/09/2015 [facility] ELECTROLYTES Creatinine Lvl 1.7 mg/dL 0.5 - 1.4 03/09/2015 [facility] ELECTROLYTES CO2 31 meq/L 24 - 32 03/09/2015 [facility] ELECTROLYTES Calcium Lvl 8.2 mg/dL 8.5 - 10.5 03/09/2015 [facility] ELECTROLYTES Bili Total 0.4 mg/dL 0.2 - 1.3 03/09/2015 [facility] ELECTROLYTES Glucose Lvl 128 mg/dL 70 - 99 03/09/2015 [facility] ELECTROLYTES AST 24 unit/L 0 - 37 03/09/2015 [facility] ELECTROLYTES ALT 30 unit/L 0 - 65 03/09/2015 [facility] Total Protein 7.0 g/dL 6.4 - 8.4 03/09/2015 [facility] ELECTROLYTES Albumin Lvl 3.8 g/dL 3.5 - 5.0 03/09/2015 [facility] ELECTROLYTES Alk Phos 88 unit/L 39 - 136 03/09/2015 [facility] ELECTROLYTES AGAP 9.0 meq/L 10.0 - 20.0 03/09/2015 [facility] ELECTROLYTES A/G Ratio 1.2 0.7 - 1.6 03/09/2015 [facility] ELECTROLYTES Globulin 3.2 g/dL 2.0 - 4.0 03/09/2015 [facility] ELECTROLYTES B/C Ratio 20 6 - 25 03/09/2015 [facility] HEMATOLOGY Platelet 143 K/CMM 133 - 450 03/09/2015 [facility] HEMATOLOGY RDW 13.3 % 11.5 - 14.5 03/09/2015 [facility] HEMATOLOGY MPV 8.2 fL 7.4 - 10.4 03/09/2015 [facility] MCH 31.8 pg 27.0 - 31.0 03/09/2015 [facility] MCHC 34.1 g/dL 32.0 - 36.0 03/09/2015 [facility] HEMATOLOGY MCV 93.2 fL 80.0 - 94.0 03/09/2015 [facility] HEMATOLOGY Hct 44.8 % 42.0 - 54.0 03/09/2015 [facility] HEMATOLOGY WBC 7.9 K/CMM 3.7 - 10.4 03/09/2015 [facility] HEMATOLOGY Hgb 15.3 g/dL 14.0 - 18.0 03/09/2015 [facility] RBC 4.80 M/CMM 4.70 - 6.10 03/09/2015 [facility] HEMATOLOGY PT 14.8 s 12.0 - 14.7 03/09/2015 [facility] HEMATOLOGY INR 1.15 0.85 - 1.17 03/09/2015 [facility] HEMATOLOGY Lymphocytes 12.1 % 20.0 - 40.0 03/09/2015 [facility] HEMATOLOGY Monocytes 9.5 % 2.0 - 12.0 03/09/2015 [facility] HEMATOLOGY Eosinophils 0.8 % 0.0 - 4.0 03/09/2015 [facility] HEMATOLOGY Basophils # 0.1 K/CMM 0.0 - 0.2 03/09/2015 [facility] HEMATOLOGY Monocytes # 0.7 K/CMM 0.0 - 0.8 03/09/2015 [facility] HEMATOLOGY Lymphocytes # 1.0 K/CMM 1.0 - 5.5 03/09/2015 [facility] HEMATOLOGY Basophils 0.6 % 0.0 - 1.0 03/09/2015 [facility] Segs-Bands # 6.1 K/CMM 1.5 - 8.1 03/09/2015 [facility] Segs 77.0 % 45.0 - 75.0 03/09/2015 [facility] Eosinophils # 0.1 K/CMM 0.0 - 0.5 03/09/2015 [facility] Abdomen/Pelvis w IV contrast CT Abdomen/Pelvis w IV contrast CT CT ABDOMEN AND PELVIS WITH CONTRAST: CLINICAL HISTORY: Abdominal pain, acute TECHNIQUE AND FINDINGS: Multiple contiguous transaxial postcontrast CT images were obtained through the abdomen and pelvis. COMPARISON: No prior similar examinations are currently available for comparison. CT ABDOMEN WITH CONTRAST: 1. Mild to moderate left hydroureteronephrosis secondary to a 4 x 4 x 10 mm left distal ureteral calculus located approximately 1.0 cm proximal to the UVJ. No nephrolithiasis is seen bilaterally. A filling defect seen in the left renal pelvis on delayed images is suspicious for either clot or nonopaque stone. Low- attenuation lesions in both kidneys are suspicious for cysts. 2. Postoperative changes of cholecystectomy with mild central biliary dilatation that is likely physiological in nature. 3. Normal liver, adrenal glands, pancreas, spleen, abdominal aorta, heart size, lung bases. 4. Mild constipation. Normal appendix. Underdistended appropriately thick-walled stomach. 5. No lymphadenopathy or mass. 6. Mild spinal degenerative changes without acute injury or suspicious focal osseous lesion. CT PELVIS WITH CONTRAST: 1. Mildly enlarged prostate and seminal vesicles. Clinical correlation and follow- up recommended. 2. Normal mildly underdistended urinary bladder. 3. No lymphadenopathy or mass. 4. No acute fracture, dislocation, or focal osseous lesion is appreciated. SL:17 03/09/2015 - - Read by: Jr Del Real MD Dictated Date/time: 03/09/15 03:29 Electronically Signed by: Jr Del Real MD 03/09/15 03:34 FINAL REPORT [facility] Spine lumbar series DX Spine lumbar series DX Lumbar spine series 5 views: COMPARISON: 11/16/2012 FINDINGS: Five non rib-bearing lumbar type vertebrae are identified. The alignment is anatomic and there is no evidence for acute fractures. There is mild to moderate spondylosis and disc disease noted in lumbar spine, relatively unchanged from previous study of 11/16/2012. SI joints demonstrate normal morphology Surgical clips in the right upper abdomen suggest a previous cholecystectomy. SL:13 07/01/2014 - - Read by: Sher Larsen MD Dictated Date/time: 07/01/14 12:53 Electronically Signed by: Sher Larsen MD 07/01/14 12:57 FINAL REPORT [facility] Spine lumbar wo contrast MRI Spine lumbar wo contrast MRI MRI lumbar spine without contrast: COMPARISON: Plain film lumbar spine series 11/16/2012. TECHNIQUE: Multiplanar imaging of the lumbar spine was performed in T1 and T2 weighted sequences. CLINICAL HX: Back pain, right leg radiculopathy. FINDINGS: Vertebral bodies demonstrate appropriate height on T1 and T2 weighted sequences. The conus medullaris demonstrates normal morphology and terminates at approximately T12-L1 level. Five non rib bearing lumbar vertebrae are confirmed in comparison with plain film study of 11/16/2012. There is heterogeneous fatty marrow deposition in the lumbar spine and visualized portion of the sacrum. Essentially all of these areas do not demonstrate any abnormal signal on the corresponding fat-sat images. In the superior right sacrum, small focus of increased signal remains on the fat-sat images is noted. There is mild thickening of the trabecula in this region and findings may be related to a hemangioma. 1.3 cm and 1.7 cm high T2 signal lesions are visualized in the left kidney. These likely represents cysts but are inadequately evaluated on the current scan. T12-L1 level: No significant abnormality. L1-L2 level: Minimal spondylosis, disc disease and facet arthrosis. Mild right foraminal stenosis. No significant central canal stenosis L2-L3 level: Prominent Schmorl's node is noted at this level which invaginates into the inferior aspect of L2 vertebral body. There is spondylosis, diffuse disc bulge, facet arthrosis and ligamentous hypertrophy. This results in moderate central canal stenosis and [id number] bilateral foraminal stenosis. L3-L4 level: There is moderate spondylosis, diffuse disc bulge, facet arthrosis and ligamentous hypertrophy. There is moderate central canal stenosis. Mild to moderate right lateral recess and right foraminal stenosis and moderate left lateral recess and left foraminal stenosis. L4-L5 level: Moderate spondylosis, diffuse disc bulge, facet arthrosis and ligamentous hypertrophy is noted. There is moderate central canal stenosis and moderate right foraminal stenosis. Moderate to severe left foraminal stenosis L5-S1 level: Mild spondylosis, minimal disc bulge and facet arthrosis. No significant central canal stenosis. Mild bilateral foraminal stenosis. IMPRESSION: Combination of spondylosis, disc disease, facet arthrosis and ligamentous hypertrophy results in moderate central canal stenosis at L2-L3, L3-L4 and L4-L5 levels. Foraminal stenosis is most profound at L4-L5 level with moderate foraminal stenosis also noted at L3-L4 and L2-L3 levels as discussed above. Possible hemangioma, right upper sacrum. Further work-up with CT of pelvis without IV contrast is recommended. Probable left renal cysts. Confirmation with sonography is recommended. SL:13 07/05/2013 - - Read by: Sher Larsen Dictated Date/time: 07/06/13 11:34 Electronically Signed by: Sher Larsen MD 07/06/13 11:59 FINAL REPORT [facility] Vital Signs Vital Sign Value Date Comments Source BMI Calculated 20.99 07/08/2017 [facility] Heart Rate 62 07/08/2017 [facility] Systolic (mm Hg) 100 07/08/2017 [facility] Diastolic (mm Hg) 62 07/08/2017 [facility] Weight 66.364 07/08/2017 [facility] Height 177.8 cm 07/08/2017 [facility] Systolic (mm Hg) 99 04/02/2017 [facility] Diastolic (mm Hg) 67 04/02/2017 [facility] Systolic (mm Hg) 97 04/02/2017 [facility] Diastolic (mm Hg) 71 04/02/2017 [facility] Systolic (mm Hg) 116 04/02/2017 [facility] Diastolic (mm Hg) 66 04/02/2017 [facility] Respitory Rate 14 04/02/2017 [facility] Respitory Rate 16 04/02/2017 [facility] Respitory Rate 14 04/02/2017 [facility] Heart Rate 62 04/02/2017 [facility] Temperature Oral (F) 97.8 F 04/01/2017 [facility] Heart Rate 54 04/01/2017 [facility] BMI Calculated 21.14 04/01/2017 [facility] Weight 66.818 04/01/2017 [facility] Height 177.8 cm 04/01/2017 [facility] Respitory Rate 18 08/24/2016 [facility] Systolic (mm Hg) 106 08/24/2016 [facility] Diastolic (mm Hg) 68 08/24/2016 [facility] Heart Rate 63 08/24/2016 [facility] Temperature Oral (F) 98.7 F 08/24/2016 [facility] Respitory Rate 18 08/24/2016 [facility] Height 177.8 cm 08/24/2016 [facility] Temperature Oral (F) 98.1 F 08/24/2016 [facility] Systolic (mm Hg) 123 08/24/2016 [facility] Diastolic (mm Hg) 76 08/24/2016 [facility] Heart Rate 68 08/24/2016 [facility] BMI Calculated 20.99 08/24/2016 [facility] Weight 66.364 08/24/2016 [facility] Systolic (mm Hg) 113 07/31/2016 [facility] Diastolic (mm Hg) 61 07/31/2016 [facility] Respitory Rate 15 07/31/2016 [facility] Respitory Rate 16 07/31/2016 [facility] Systolic (mm Hg) 111 07/31/2016 [facility] Diastolic (mm Hg) 76 07/31/2016 [facility] Systolic (mm Hg) 113 07/31/2016 [facility] Diastolic (mm Hg) 71 07/31/2016 [facility] Respitory Rate 20 07/31/2016 [facility] Temperature Oral (F) 97.5 F 07/22/2016 [facility] Heart Rate 60 07/22/2016 [facility] Weight 66.364 07/22/2016 [facility] BMI Calculated 20.99 07/22/2016 [facility] Height 177.8 cm 07/22/2016 [facility] Heart Rate 63 03/10/2015 [facility] Systolic (mm Hg) 109 03/10/2015 [facility] Diastolic (mm Hg) 56 03/10/2015 [facility] Respitory Rate 18 03/10/2015 [facility] Temperature Oral (F) 98.8 F 03/10/2015 [facility] Systolic (mm Hg) 101 03/10/2015 [facility] Diastolic (mm Hg) 56 03/10/2015 [facility] Respitory Rate 18 03/10/2015 [facility] Systolic (mm Hg) 103 03/10/2015 [facility] Diastolic (mm Hg) 63 03/10/2015 [facility] Heart Rate 60 03/10/2015 [facility] Temperature Oral (F) 98.4 F 03/10/2015 [facility] Temperature Oral (F) 98.2 F 03/10/2015 [facility] Heart Rate 62 03/10/2015 [facility] Respitory Rate 16 03/10/2015 [facility] BMI Calculated 20.43 03/09/2015 [facility] Weight 64.6 03/09/2015 [facility] Height 177.8 cm 03/09/2015 [facility] Weight 72.727 03/09/2015 [facility] Temperature Oral (F) 98.6 F 03/08/2015 [facility] Heart Rate 62 03/08/2015 [facility] Respitory Rate 18 03/08/2015 [facility] Systolic (mm Hg) 114 03/08/2015 [facility] Diastolic (mm Hg) 64 03/08/2015 [facility] Systolic (mm Hg) 118 03/08/2015 [facility] Diastolic (mm Hg) 70 03/08/2015 [facility] Respitory Rate 18 03/08/2015 [facility] Heart Rate 65 03/08/2015 [facility] Weight 65.909 03/08/2015 [facility] Height 177.8 cm 03/08/2015 [facility] Systolic (mm Hg) 122 03/08/2015 [facility] Diastolic (mm Hg) 70 03/08/2015 [facility] Heart Rate 67 03/08/2015 [facility] Respitory Rate 18 03/08/2015 [facility] BMI Calculated 20.85 03/08/2015 [facility] Respitory Rate 18 07/01/2014 [facility] Diastolic (mm Hg) 74 07/01/2014 [facility] Systolic (mm Hg) 128 07/01/2014 [facility] Temperature Oral (F) 98.1 F 07/01/2014 [facility] Heart Rate 74 07/01/2014 [facility] Weight 67.273 07/01/2014 [facility] BMI Calculated 21.28 07/01/2014 [facility] Height 177.8 cm 07/01/2014 [facility] Systolic (mm Hg) 106 07/01/2014 [facility] Respitory Rate 18 07/01/2014 [facility] Heart Rate 84 07/01/2014 [facility] Diastolic (mm Hg) 77 07/01/2014 [facility] Temperature Oral (F) 97.6 F 07/01/2014 [facility] Encounters Location Location Details Encounter Type Encounter Number Reason For Visit Attending Provider ADM Date DC Date Status Source [facility] Outpatient [id number] 724.4,724.2 ANDREW MOLINA 07/05/2013 Active [facility] [id number] Felicia Virgen 07/01/2014 07/01/2014 [facility] [id number] Chelsi Virgen 03/08/2015 03/08/2015 [facility] Inpatient [id number] Oj White 03/09/2015 03/10/2015 [facility] Outpatient [id number] Bertrand Macario 05/15/2015 05/16/2015 [facility] Bedded Outpatient [id number] Harshal Wyatt 07/31/2016 07/31/2016 [facility] Emergency [id number] Yosef Pettyv 08/24/2016 08/24/2016 [facility] Outpatient [id number] JENNIFER ESTILL 11/15/2016 [facility] [id number] [place] ESTILL 11/15/2016 Active [facility] Outpatient [id number] [facility] 11/22/2016 11/23/2016 [facility] Outpatient [id number] [facility] 12/17/2016 [facility] [id number] [facility] 01/07/2017 [facility] Out[facility] [id number] [facility] 01/21/2017 [facility] [id number] [facility] 03/25/2017 [facility] [id number] [facility] 04/01/2017 [facility] Outpatient [id number] [facility] 04/01/2017 [facility] [id number] [facility] 04/02/2017 [facility] [id number] [facility] 04/02/2017 04/02/2017 [facility] Outpatient [id number] [facility] 04/29/2017 [facility] [id number] [facility] 05/27/2017 [facility] [id number] [facility] 07/08/2017 [facility] [place] [facility] Outpatient [id number] Nara Kuo 07/08/2017 07/09/2017 [facility] Outpatient [id number] Rocío Luevano 10/08/2017 10/09/2017 [facility] Outpatient [id number] Rocío Luevano 10/17/2017 10/18/2017 [facility] Outpatient [id number] Rocío Luevano 11/11/2017 11/12/2017 [facility] [place] [facility] [place] Message [id number] 12/08/2017 12/10/2017 [facility] [id number] ROBERT LESLIE 03/26/2018 [facility] Outpatient [id number] JENNIFER HUMPHRIES 04/02/2019 [facility] Outpatient [id number] 724.4=COMPRESSION OF LUMBAR NERVE ROOT/724.2=ACUTE LOW ANDREW JESSE Active [facility] Procedures Procedure Code Date Perfomer Comments Source Cholecystectomy 56148084 [facility] Shoulder repair [id number] [facility] Arthroscopy of knee<sup>1</sup> [id number] 09/2006 [facility] Neuro Cholecystectomy [id number] [facility] Neuro Epidural steroid injection<sup>2</sup> [id number] x3 [facility] Neuro Operation<sup>3</sup> [id number] 02/2015 [facility] Neuro Operation [id number] [facility] Neuro Primary repair of inguinal hernia<sup>4</sup> [id number] 09/2004 [facility] Neuro Shoulder repair [id number] [facility] Neuro Arthroscopy of knee<sup>1</sup> [id number] 09/2006 [facility] Epidural steroid injection<sup>2</sup> [id number] x3 [facility] Operation<sup>3</sup> [id number] 02/2015 [facility] Operation [id number] [facility] Primary repair of inguinal hernia<sup>4</sup> [id number] 09/2004 [facility]
--- OUTSIDE RECORDS SUMMARY | 2018-06-02 14:40 | XMS REPORT | Summary of Care ---
Author Author [facility] Organization [facility] Address Unknown Phone Unavailable Encounter ROMAN Landis(DYLAN) [id number] Date(s): 08/23/16 - 08/24/16 [facility] [address] [place] [address]- Discharge Diagnosis: Headache Discharge Disposition: Home or Self Care Attending Physician: Yosef Guallpa MD Vital Signs Most recent to 1 2 oldest [Reference Range]: Height 177.8 cm (08/23/16 10:00 PM) Temperature Oral 98.7 DegF 98.1 DegF [96.4-99.1 DegF] (08/23/16 11:56 PM) (08/23/16 10:00 PM) Blood Pressure 106/68 mmHg 123/76 mmHg [90-140/60-90 mmHg] (08/23/16 11:56 PM) (08/23/16 10:00 PM) Respiratory Rate 18 BRMIN 18 BRMIN [14-20 BRMIN] (08/23/16 11:56 PM) (08/23/16 10:00 PM) Peripheral Pulse 63 bpm 68 bpm Rate [60-100 bpm] (08/23/16 11:56 PM) (08/23/16 10:00 PM) Weight 66.364 kg (08/23/16 10:00 PM) Body Mass Index 20.99 m2 (08/23/16 10:00 PM) Problem List Condition Effective Dates Status [...]
--- OUTSIDE RECORDS SUMMARY | 2018-06-02 14:40 | XMS REPORT | Summary of Care ---
Author Author [facility] Organization [facility] Address Unknown Phone Unavailable Encounter ROMAN Landis(DYLAN) [id number] Date(s): 03/08/15 - 03/10/15 [facility] [address] [place] [address]- [phone] Discharge Disposition: Home Attending Physician: Oj White MD Admitting Physician: Oj White MD Vital Signs 1 2 3 Most recent to oldest [Reference Range]: 177.8 cm (03/09/15 4:59 AM) Height 1 2 3 Most recent to oldest [Reference Range]: 98.8 DegF (03/10/15 11:59 AM) 98.4 DegF (03/10/15 8:00 AM) 98.2 DegF (03/10/15 4:00 AM) Temperature Oral [96.4-99.1 DegF] 1 2 3 Most recent to oldest [Reference Range]: 109/56 mmHg (03/10/15 11:59 AM) 101/56 mmHg (03/10/15 11:33 AM) 103/63 mmHg (03/10/15 8:00 AM) Blood Pressure [90-140/60-90 mmHg] 1 2 3 Most recent to oldest [Reference Range]: 18 BRMIN (03/10/15 11:59 AM) 18 BRMIN (03/10/15 8:00 AM) 16 BRMIN (03/10/15 4:00 AM) Respiratory Rate [14-20 BRMIN] 1 2 3 Most recent to oldest [Reference Range]: 63 bpm (03/10/15 11:59 AM) 60 bpm (03/10/15 8:00 AM) 62 bpm (03/10/15 4:00 AM) Peripheral Pulse Rate [60-100 bpm] 1 2 3 Most recent to oldest [Reference Range]: 64.6 kg (03/09/15 4:59 AM) 72.727 kg (03/08/15 11:56 PM) Weight 1 2 3 Most recent to oldest [Reference Range]: 20.43 m2 (03/09/15 4:59 AM) Body Mass Index Problem List Condition Effective Dates Status Health Status Informant Hypertension(Confirm Active ed) Allergies, Adverse Reactions, Alerts Substance Reaction Severity Status NKDA Active Medications aspirin 81 mg, PO, Daily, 0 Refill(s) Start Date: 03/09/15 Stop Date: 03/09/15 Status: Discontinued aspirin 0 Refill(s) Start Date: 03/09/15 Stop Date: 03/09/15 Status: Discontinued calcium citrate 250 mg, PO, Daily, 0 Refill(s) Start Date: 03/09/15 Status: Ordered Dilaudid 0.5 mg, 0.5 mL, Route: IVP, Drug form: INJ, Q3H, Dosing Weight 72.727, kg, Prior ity: STAT, Start date: 03/09/15 4:58:00, Duration: 30 day, Stop date: 04/08/15 2 :00:00 Start Date: 03/09/15 Stop Date: 03/10/15 Status: Discontinued fentaNYL 25 microgram, 0.5 mL, Route: IVP, Drug form: INJ, Q5Min, Dosing Weight 64.6, kg, PRN Pain Score 4-6, Start date: 03/09/15 12:38:00, Duration: 4 doses or times, Stop date: Limited # of times Notes: (Same as: Sublimaze) Preservative free. Start Date: 03/09/15 Stop Date: 03/10/15 Status: Discontinued Flomax 0.4 mg, 1 cap, Route: PO, Drug form: CAP, Daily, Dosing Weight 72.727, kg, Start date: 03/09/15 9:00:00, Duration: 30 day, Stop date: 04/07/15 9:00:00 Notes: (Same As: Flomax) "Do Not Crush" Start Date: 03/09/15 Stop Date: 03/10/15 Status: Discontinued Flomax 0.4 mg oral capsule 0.4 mg=1 cap, PO, Daily, # 30 cap, 0 Refill(s) Start Date: 03/09/15 Status: Ordered flumazenil 0.2 mg, 2 mL, Route: IVP, Drug form: INJ, PRN, Dosing Weight 64.6, kg, PRN Benzo diazepine Reversal, Initial dose, Start date: 03/09/15 12:38:00, Duration: 30 da y, Stop date: 04/08/15 12:37:00 Notes: (Same as: Romazicon) Start Date: 03/09/15 Stop Date: 03/10/15 Status: Discontinued glucosamine 500 mg oral capsule 500 mg=1 cap, PO, Daily, # 30 cap, 0 Refill(s) Start Date: 03/09/15 Status: Ordered hydrALAZINE 10 mg, 0.5 mL, Route: IVP, Drug form: INJ, Q20Min, Dosing Weight 64.6, kg, PRN E levated BP, Start date: 03/09/15 12:38:00, Duration: 2 doses or times, Stop date : Limited # of times Notes: (Same as: Apresoline)Push over 5 minutes Start Date: 03/09/15 Stop Date: 03/10/15 Status: Discontinued Lactated Ringers Injection IV 1000 mL 1,000 mL, Rate: 25 ml/hr, Infuse over: 40 hr, Route: IV, Dosing Weight 64.6 kg, Total Volume: 1,000, Start date: 03/09/15 8:58:00, Duration: 30 day, Stop date: 04/08/15 8:57:00 Start Date: 03/09/15 Stop Date: 03/09/15 Status: Discontinued metoprolol 1 mg, 1 mL, Route: IVP, Drug form: INJ, Q5Min, Dosing Weight 64.6, kg, PRN Other -See Comment, Start date: 03/09/15 12:38:00, Duration: 5 doses or times, Stop d ate: Limited # of times Notes: (Same as: Lopressor)Push over 2 minutes Start Date: 03/09/15 Stop Date: 03/10/15 Status: Discontinued morphine Sulfate 2 mg, 1 mL, Route: IVP, Drug form: INJ, Q5Min, Dosing Weight 64.6, kg, PRN Pain Score 4-6, Start date: 03/09/15 12:38:00, Duration: 5 doses or times, Stop date: Limited # of times Notes: (Same as:MORPhine Sulfate) Start Date: 03/09/15 Stop Date: 03/10/15 Status: Discontinued morphine Sulfate 4 mg, Route: IVP, Drug form: INJ, ONCE, Dosing Weight 72.727, kg, Priority: STAT , Start date: 03/09/15 3:09:00, Stop date: 03/09/15 3:09:00 Start Date: 03/09/15 Stop Date: 03/09/15 Status: Completed naloxone 0.04 mg, 0.1 mL, Route: IVP, Drug form: INJ, Q2MIN, Dosing Weight 64.6, kg, PRN Narcotic Reversal, Start date: 03/09/15 12:38:00, Duration: 8 doses or times, St op date: Limited # of times Notes: Same as Narcan Start Date: 03/09/15 Stop Date: 03/10/15 Status: Discontinued Groom 5/325 oral tablet 1 tab, PO, Q6H, PRN Pain, X 15 day, # 30 tab, 0 Refill(s) Start Date: 03/10/15 Stop Date: 03/25/15 Status: Ordered omega-3 polyunsaturated fatty acids PO, 0 Refill(s) Start Date: 03/09/15 Status: Ordered ondansetron 4 mg, 2 mL, Route: IVP, Drug form: INJ, Q6H, Dosing Weight 72.727, kg, PRN Nause a & Vomiting, Start date: 03/09/15 4:58:00, Duration: 30 day, Stop date: 04/08/15 4:57:00 Notes: (Same as: Alf) MEDICATION WASTE Product Size: 4 mgProduct Was alcides: ___ mg Start Date: 03/09/15 Stop Date: 03/10/15 Status: Discontinued ondansetron 4 mg, 2 mL, Route: IVP, Drug form: INJ, ONCE, Dosing Weight 64.6, kg, PRN Nausea & Vomiting, Start date: 03/09/15 12:38:00 Notes: (Same as: Alf) MEDICATION WASTE Product Size: 4 mgProduct Was alcides: ___ mg Start Date: 03/09/15 Stop Date: 03/10/15 Status: Discontinued oxybutynin 5 mg oral tablet 5 mg=1 tab, PO, TID, PRN Other-See Comments, # 30 tab, 0 Refill(s) Start Date: 03/09/15 Status: Ordered pneumococcal 23-valent vaccine 0.5 mL, Route: IM, Drug Form: INJ, Daily, Start date: 03/09/15 9:00:00, Duration : 1 doses or times, Stop date: 03/09/15 9:00:00 Notes: (Same as: Pneumovax 23) Refrigerate Start Date: 03/09/15 Stop Date: 03/10/15 Status: Deleted Pneumovax 23 0.5 mL, Route: IM, Drug Form: INJ, ONCE, Start date: 03/10/15 11:22:00, Stop vanesa e: 03/10/15 11:22:00 Notes: (Same as: Pneumovax 23) Refrigerate Start Date: 03/10/15 Stop Date: 03/10/15 Status: Ordered Pyridium 100 mg oral tablet 100 mg=1 tab, PO, TID, PRN Dysuria, X 2 day, # 6 tab, 0 Refill(s) Start Date: 03/09/15 Stop Date: 03/11/15 Status: Completed Saline Flush 0.9% 10 ml, Route: IVP, Drug Form: INJ, Dosing Weight 72.727, kg, PRN, PRN Line Flush , Start date: 03/09/15 4:58:00, Duration: 30 day, Stop date: 04/08/15 4:57:00 Notes: (Same as: BD Posiflush) Start Date: 03/09/15 Stop Date: 03/10/15 Status: Discontinued Sodium Chloride 0.9% IV 1,000 mL 1,000 mL, Rate: 125 ml/hr, Infuse over: 8 hr, Route: IV, Dosing Weight 72.727 kg , Total Volume: 1,000, Start date: 03/09/15 4:58:00, Duration: 30 day, Stop date : 04/08/15 4:57:00 Start Date: 03/09/15 Stop Date: 03/10/15 Status: Discontinued Zofran 4 mg, Route: IVP, Drug form: INJ, ONCE, Dosing Weight 72.727, kg, Priority: STAT , Start date: 03/09/15 3:09:00, Stop date: 03/09/15 3:09:00 Start Date: 03/09/15 Stop Date: 03/09/15 Status: Completed Results ELECTROLYTES Most recent to 1 2 oldest [Reference Range]: Sodium Lvl [135-145 139 mEq/L 141 mEq/L mEq/L] (03/10/15 5:20 AM) (03/09/15 1:14 AM) Potassium Lvl 3.9 mEq/L 4.0 mEq/L [3.5-5.1 mEq/L] (03/10/15 5:20 AM) (03/09/15 1:14 AM) Chloride Lvl [95-109 106 mEq/L 105 mEq/L mEq/L] (03/10/15 5:20 AM) (03/09/15 1:14 AM) CO2 [24-32 mEq/L] 24 mEq/L 31 mEq/L (03/10/15 5:20 AM) (03/09/15 1:14 AM) AGAP [10.0-20.0 12.9 mEq/L 9.0 mEq/L mEq/L] (03/10/15 5:20 AM) *LOW* (03/09/15 1:14 AM) CHEM PANEL Most recent to 1 2 oldest [Reference Range]: Creatinine Lvl 1.3 mg/dL 1.7 mg/dL [0.5-1.4 mg/dL] (03/10/15 5:20 AM) *HI* (03/09/15 1:14 AM) eGFR 55 mL/min/1.73m2 1 40 mL/min/1.73m2 2 *NA* *NA* (03/10/15 5:20 AM) (03/09/15 1:14 AM) BUN [7-22 mg/dL] 21 mg/dL 34 mg/dL (03/10/15 5:20 AM) *HI* (03/09/15 1:14 AM) B/C Ratio [6-25] 20 (03/09/15 1:14 AM) Glucose Lvl [70-99 88 mg/dL 128 mg/dL mg/dL] (03/10/15 5:20 AM) *HI* (03/09/15 1:14 AM) Total Protein 7.0 g/dL [6.4-8.4 g/dL] (03/09/15 1:14 AM) Albumin Lvl [3.5-5.0 3.8 g/dL g/dL] (03/09/15 1:14 AM) Globulin [2.0-4.0 3.2 g/dL g/dL] (03/09/15 1:14 AM) A/G Ratio [0.7-1.6] 1.2 (03/09/15 1:14 AM) Calcium Lvl 7.5 mg/dL 8.2 mg/dL [8.5-10.5 mg/dL] *LOW* *LOW* (03/10/15 5:20 AM) (03/09/15 1:14 AM) ALT [0-65 unit/L] 30 unit/L (03/09/15 1:14 AM) AST [0-37 unit/L] 24 unit/L (03/09/15 1:14 AM) Alk Phos [39-136 88 unit/L unit/L] (03/09/15 1:14 AM) Bili Total [0.2-1.3 0.4 mg/dL mg/dL] (03/09/15 1:14 AM) Amylase Lvl [25-115 85 unit/L unit/L] (03/09/15 1:14 AM) Lipase Lvl [73-393 174 unit/L unit/L] (03/09/15 1:14 AM) 1Result Comment: The eGFR is calculated [...] be mul tiplied by the estimated BMI. 2Result Comment: The eGFR is calculated using the [...] be mul tiplied by the estimated BMI. URINE AND STOOL Most recent to 1 2 oldest [Reference Range]: UA Turbidity [Clear] Clear (03/09/15 4:14 AM) UA Color Ltyellow *NA* (03/09/15 4:14 AM) UA pH [5.0-8.0] 5.0 (03/09/15 4:14 AM) UA Spec Grav >=1.050 [<=1.030] *ABN* (03/09/15 4:14 AM) UA Glucose [Negative 50 mg/dL mg/dL] *ABN* (03/09/15 4:14 AM) UA Blood [Negative] Negative (03/09/15 4:14 AM) UA Ketones [Negative Trace mg/dL mg/dL] *ABN* (03/09/15 4:14 AM) UA Protein [Negative Negative mg/dL mg/dL] (03/09/15 4:14 AM) UA Urobilinogen <=1.0 mg/dL [0.1-1.0 mg/dL] *NA* (03/09/15 4:14 AM) UA Bili [Negative] Negative *NA* (03/09/15 4:14 AM) UA Leuk Est Negative [Negative] (03/09/15 4:14 AM) UA Nitrite Negative [Negative] (03/09/15 4:14 AM) UA WBC [0-5 /HPF] 1 /HPF (03/09/15 4:14 AM) UA RBC [0-2 /HPF] 4 /HPF *HI* (03/09/15 4:14 AM) UA Sq Epi None Seen *NA* (03/09/15 4:14 AM) UA Mucus [None Seen Few /LPF /LPF] *NA* (03/09/15 4:14 AM) HEMATOLOGY Most recent to 1 2 oldest [Reference Range]: WBC [3.7-10.4 K/CMM] 9.5 K/CMM 7.9 K/CMM (03/10/15 5:20 AM) (03/09/15 1:14 AM) RBC [4.70-6.10 4.46 M/CMM 4.80 M/CMM M/CMM] *LOW* (03/09/15 1:14 AM) (03/10/15 5:20 AM) Hgb [14.0-18.0 g/dL] 14.2 g/dL 15.3 g/dL (03/10/15 5:20 AM) (03/09/15 1:14 AM) Hct [42.0-54.0 %] 41.8 % 44.8 % *LOW* (03/09/15 1:14 AM) (03/10/15 5:20 AM) MCV [80.0-94.0 fL] 93.7 fL 93.2 fL (03/10/15 5:20 AM) (03/09/15 1:14 AM) MCH [27.0-31.0 pg] 31.8 pg 31.8 pg *HI* *HI* (03/10/15 5:20 AM) (03/09/15 1:14 AM) MCHC [32.0-36.0 33.9 g/dL 34.1 g/dL g/dL] (03/10/15 5:20 AM) (03/09/15 1:14 AM) RDW [11.5-14.5 %] 13.4 % 13.3 % (03/10/15 5:20 AM) (03/09/15 1:14 AM) Platelet [133-450 152 K/CMM 143 K/CMM K/CMM] (03/10/15 5:20 AM) (03/09/15 1:14 AM) MPV [7.4-10.4 fL] 8.4 fL 8.2 fL (03/10/15 5:20 AM) (03/09/15 1:14 AM) Segs [45.0-75.0 %] 68.7 % 77.0 % (03/10/15 5:20 AM) *HI* (03/09/15 1:14 AM) Lymphocytes 17.6 % 12.1 % [20.0-40.0 %] *LOW* *LOW* (03/10/15 5:20 AM) (03/09/15 1:14 AM) Monocytes [2.0-12.0 12.4 % 9.5 % %] *HI* (03/09/15 1:14 AM) (03/10/15 5:20 AM) Eosinophils [0.0-4.0 0.8 % 0.8 % %] (03/10/15 5:20 AM) (03/09/15 1:14 AM) Basophils [0.0-1.0 0.5 % 0.6 % %] (03/10/15 5:20 AM) (03/09/15 1:14 AM) Segs-Bands # 6.5 K/CMM 6.1 K/CMM [1.5-8.1 K/CMM] (03/10/15 5:20 AM) (03/09/15 1:14 AM) Lymphocytes # 1.7 K/CMM 1.0 K/CMM [1.0-5.5 K/CMM] (03/10/15 5:20 AM) (03/09/15 1:14 AM) Monocytes # [0.0-0.8 1.2 K/CMM 0.7 K/CMM K/CMM] *HI* (03/09/15 1:14 AM) (03/10/15 5:20 AM) Eosinophils # 0.1 K/CMM 0.1 K/CMM [0.0-0.5 K/CMM] (03/10/15 5:20 AM) (03/09/15 1:14 AM) Basophils # [0.0-0.2 0.1 K/CMM K/CMM] (03/09/15 1:14 AM) PT [12.0-14.7 14.8 seconds seconds] *HI* (03/09/15 1:14 AM) INR [0.85-1.17] 1.15 (03/09/15 1:14 AM) Immunizations No data available for this section Procedures Procedure Date Related Diagnosis Body Site Cholecystectomy Shoulder repair Social History Social History Type Response Alcohol Never Smoking Status Never smoker; Exposure to Tobacco Smoke None; Cigarette Smoking Last 365 Days No; Reg Smoking Cessation Counseling Yes Assessment and Plan Extracted from: Title: Clinical Document Author: Fredrick Woodruff MD Date: 03/10/15 Progress Daily [facility] Completed: Feb, 15:56 by Fredrick Woodruff MD RM: 315 - 1P, SE [id number] (: 1945) M Attending: Oj White MDPhone: Service: Internal Medicine Reason for Admission: OBSTRUCTING URETEROLITHIASIS Working DRG: None Documented Code status: Full Code [Ordered]Current diet: Isolation: None Documented Allergies: NKDA SUBJECTIVE Pt doing well after procedure. Pain is minimal OBJECTIVE HEENT: normocephalic, atraumatic, extraocular movement intact, normal neck movement CV: RRR Resp: Normal respiratory effort GI: soft, NT, ND, Bowel Sounds Present Skin: warm, well-perfused Extremities: moves all 4 ext within normal limits Neuro: CN2-12 without deficit Psych: A&O x3 ASSESSMENT & EXAM s/p URS with stent placement. Doing well. Stent with string attached PLAN & TREATMENT Okay to D/C Remove stent on friday Follow up in a couple weeks for post-op visit DIAGNOSES & PROBLEMS nephrolithiasis Ready for Discharge (Yes/No)? Meraz still necessary (Yes/No): Line still necessary (Yes/No): 24hr Labs 03/10 0520 Glucose Lvl88 BUN21 Creatinine Lvl1.3 Sodium Onq220 Potassium Lvl3.9 Chloride Gvg130 CO224 AGAP12.9 Calcium Lvl7.5 L eGFR55 WBC9.5 RBC4.46 L Hgb14.2 Hct41.8 L MCV93.7 MCH31.8 H MCHC33.9 RDW13.4 Dzvkwrqc789 MPV8.4 Segs68.7 Mihvpdqio05.4 H Qzmhogtxcsm06.6 L Eosinophils0.8 Basophils0.5 Segs-Bands #6.5 Lymphocytes #1.7 Monocytes #1.2 H Eosinophils #0.1 VitalsTmp(F)[id number] 03/10 11:5998.978818/5618------ 03/10 11:33-------101/56-------- 03/10 08:0098.730504/122187--- 03/10 04:0098.036718/7316------ 03/10 00:0098.855642/6616------ 24 Hr Tmax: 98.8F (37.11c) at 03/10 11:59Vital Signs are the last 5 in the past 48 hours. DateWt(kg)Wt(lb)Ht(cm)Ht(in)Method 03/09 64.60 142.02199.80 70.00Measured 03/08 (initial) 72.73 160.00Estimated .80 70.00Stated I&ORecordInOutBal 02/2424hr Tot 301 0 301 02/2324hr Tot 1191 093 2297 Medications (1) Active Scheduled Meds: None Unscheduled Meds: None PRN Meds: None One Time Meds (1): 03/10/15 (Ordered) pneumococcal 23-valent vaccine (Pneumovax 23) 0.5 mL IM ONCE Continuous Infusions: None Extracted from: Title: Clinical Document Author: Mike Kearney MD Date: 03/09/15 History and Physical Attending: Carlos Alberto Avila MDPhone: [phone]: Emergency Medicine Service Code status: None Specified=FULL CODE Reason for Admission: TROUBLE BREATHING Working DRG: None Documented Isolation: None Documented Consulting Physicians: (none on file) CC: my L side hurts HPI: This is a 70 yo w/ below PMHx who p/w 1 day h/o L flank pain. L back pain radiates to L flank toward L groin, described as sharp and aching, severe, continuous. Nothing improves or aggravates the pain. N/V x 9. No hematuria, dysuriea, changes in stream, or any other urinary problems. Denies lightheadedness/dizziness, SOB, CP, bowel changes. Drinks about 10 bottles of water a day. PMHx: unremarkable PSHx: cholecystectomy knee surgery shoulder surgery FHx: reviewed and noncontributory SHx: Denies tobacco, EtOH, illicit drugs Meds: Medication List Active Medications Ordered acetaminophen-codeine: 1 - 2 tab, PO, Q4H, for 2 day, PRN: Pain, 20 tab, 0 Refill(s). loperamide: 2 mg, 1 tab, PO, Q4H, for 10 day, PRN: Loose Stools, 12 tab, 0 Refill(s). ondansetron: 4 mg, 1 tab, PO, Q8H, for 10 day, PRN: Nausea/vomiting, 30 tab, 0 Refill(s). Medications Inactivated in the Last 72 Hours acetaminophen: 650 mg, PO, ONCE. acetaminophen: 650 mg, 2 tab, PYXIS, ONCE. acetaminophen-hydrocodone: 1 tab, PO, ONCE. acetaminophen-hydrocodone: 1 tab, PYXIS, ONCE. iodixanol: 100 mL, PYXIS, ONCE. loperamide: 4 mg, 2 cap, PO, ONCE. loperamide: 4 mg, 2 cap, PYXIS, ONCE. morphine Sulfate: 4 mg, IVP, ONCE. morphine Sulfate: 4 mg, 2 mL, PYXIS, ONCE. ondansetron: 4 mg, PO, ONCE. ondansetron: 4 mg, 1 tab, PYXIS, ONCE. ondansetron: 4 mg, IVP, ONCE. ondansetron: 4 mg, 2 mL, PYXIS, ONCE. Allergies: NKDA ROS: See HPI. All other systems reviewed by myself are negative unless noted above. Physical Exam: VitalsTmp(F)[id number] 03/09 03:08----[id number]--- 03/08 23:5697.212044/187335--- 24 Hr Tmax: 97.6F (36.44c) at 03/08 23:56Vital Signs are the last 5 in the past 48 hours. General: NAD, nontoxic appearing HEENT: NCAT, PERRL, MMM, no JVD Cardiovascular: RRR, S1S2 Respiratory: CTAB Abdomen: soft, +BS, ND, TTP over LLQ and L flank w/ some guarding Extremities: no b/l LE edema Skin: no rashes Neurologic: comprehension and speech intact, CN III-XII grossly intact Musculoskeletal: symmetric strength in all extremities Rectal/: L CVA tenderness Labs: 24hr Labs 03/09 0114 Sodium Uci728 Potassium Lvl4.0 Chloride Vup729 CO231 AGAP9.0 L Glucose Igg239 H Creatinine Lvl1.7 H BUN34 H B/C Ratio20 Total Protein7.0 Albumin Lvl3.8 Globulin3.2 A/G Ratio1.2 Calcium Lvl8.2 L ALT30 AST24 Alk Phos88 Bili Total0.4 eGFR40 Amylase Lvl85 Lipase Zzn136 WBC7.9 RBC4.80 Hgb15.3 Hct44.8 MCV93.2 MCH31.8 H MCHC34.1 RDW13.3 Kddgbgsy420 MPV8.2 Segs77.0 H Monocytes9.5 Kcfqkmdlhvt48.1 L Eosinophils0.8 Basophils0.6 Segs-Bands #6.1 Lymphocytes #1.0 Monocytes #0.7 Eosinophils #0.1 Basophils #0.1 PT14.8 H INR1.15 Micro: none Imaging: CT abd/pelvis: 1. Mild to moderate left hydroureteronephrosis secondary to a 4 x 4 x 10 mm left distal ureteral calculus located approximately 1.0 cm proximal to the UVJ. No nephrolithiasis is seen bilaterally. A filling defect seen in the left renal pelvis on delayed images is suspicious for either clot or nonopaque stone. Low-attenuation lesions in both kidneys are suspicious for [...] acute injury or suspicious focal osseous lesion. 1. Mildly enlarged prostate and seminal vesicles. Clinical correlation and follow- up recommended. 2. Normal mildly underdistended urinary bladder. 3. No lymphadenopathy or mass. 4. No acute fracture, dislocation, or focal osseous lesion is appreciated. EKG: sinus nakul, no major ST abnormalities Assessment and Plan: 70 yo p/w severe L flank pain radiating to groin and found to have large ureteral stone requiring urologic intervention. UA not suggestive of UTI and pt has no dysuria or other urinary symptoms. 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
--- OUTSIDE RECORDS SUMMARY | 2018-06-02 14:41 | XMS REPORT | Summary of Care ---
Author Author [facility] Organization [facility] Address Unknown Phone Unavailable Encounter HQ Encntr_alias(FIN) [id number] Date(s): 10/17/17 - 10/17/17 [facility] [address] [place] [address]- Encounter Diagnosis Cough (Final) - 10/23/17 Discharge Disposition: Home or Self Care Attending Physician: Rocío Luevano MD Admitting Physician: Rocío Luevano MD Vital Signs No [...] inguinal hernia4 Completed Shoulder repair Completed 2x3 402/2005 Social History Social History Type Response Alcohol Never Smoking Status Never smoker; Exposure to Tobacco Smoke None; Cigarette Smoking Last 365 Days No; Reg Smoking Cessation Counseling Yes entered on: 07/08/17 Assessment and Plan No data available for this section
--- OUTSIDE RECORDS SUMMARY | 2018-06-02 14:41 | XMS REPORT | Summary of Care ---
Author Author [facility] [place] [facility] Address Unknown Phone Unavailable Encounter HQ Radhamesntr_guillermo(FIN) [id number] Date(s): 12/08/17 - 12/09/17 [facility] [address] [facility] [address] [phone] Vital Signs No data available for this [...]
--- OUTSIDE RECORDS SUMMARY | 2018-06-02 14:41 | XMS REPORT | Summary of Care ---
Author Author [facility] Organization [facility] Address Unknown Phone Unavailable Encounter HQ Encntr_guillermo(FIN) [id number] Date(s): 11/11/17 - 11/11/17 [facility] [address] [place] [address]- [phone] Encounter Diagnosis Calculus of kidney (Final) - 11/18/17 Discharge Disposition: Home or Self Care Attending [...]
--- OUTSIDE RECORDS SUMMARY | 2018-06-02 14:41 | XMS REPORT ---
[facility] Address Unknown Phone Unavailable Care Team Providers Care Program Or Project Administrator Name Role Phone VALERIA MOONEY Unavailable Unavailable Problems This patient has no known problems. Allergies, Adverse Reactions, Alerts This patient has no known allergies or adverse reactions. Medications This patient has no known medications. Results Test Description Test Time Test Comments Text Results Atomic Results Result Comments CHEST 2 VIEWS 2018-05-29 12:50:00 [place] [address] Patient Name: HAKAN BARONE MR #: [id number] : 1945 Age/Sex: 73/M Req #: [id number] Adm Physician: Ordered by: VALERIA MOONEY DPM Report #: [id number] Location: OR Room/Bed: Procedure: [id number] DX/CHEST 2 VIEWS Exam Date: Exam Time: REPORT STATUS: Signed EXAMINATION: CHEST 2 VIEWS INDICATION: COMPARISON: None FINDINGS: PA and lateral views TUBES and LINES: None. LUNGS: Lungs are well inflated. Mild linear scarring in the left upper lobe. There is no evidence of pneumonia or pulmonary edema. PLEURA: No pleural effusion or pneumothorax. HEART AND MEDIASTINUM: The cardiomediastinal silhouette is unremarkable. BONES AND SOFT TISSUES: No acute osseous lesion. Soft tissues are unremarkable. UPPER ABDOMEN: No free air under the diaphragm. Right upper quadrant cholecystectomy clips. IMPRESSION: No acute thoracic abnormality. Mild linear scarring in the left upper lobe may reflect sequela of prior pneumonia. Signed by: Dr. Arsenio Wing M.D. on 05/29/2018 12:50 PM Dictated By: ARSENIO WING MD 1250 Transcribed By: DEYVI on 05/29/18 1250 COPY TO: VALERIA MOONEY DPM
== END | disposition home or self-care (01) ==
LOC: OR 07:39
PROVIDERS: ATTEND Podiatrist Foot & Ankle Surgery
DX: M20.42 Other hammer toe(s) (acquired), left foot (principal); M20.41 Other hammer toe(s) (acquired), right foot; M21.622 Bunionette of left foot; M21.621 Bunionette of right foot; Z01.810 Encounter for preprocedural cardiovascular examination; Z01.812 Encounter for preprocedural laboratory examination; Z01.818 Encounter for other preprocedural examination; Z79.82 Long term (current) use of aspirin
CPT/HCPCS: 28110; 28285 ×2; 36415; 71046; 85025; 93005; C1713; J0690; J1100; J2001; J2405; J2704; Q4150; 76000

== ENCOUNTER → 2022-01-29 | Day surgery (SDC) | payer MEDICARE ==
[2022-01-25 13:01] LABS: BASOPHILS % 0.8 % (0.0-1.0); EOSINOPHILS % 0.6 % (0.0-6.0); HEMATOCRIT 44.1 % (38.2-49.6); HEMOGLOBIN 14.2 g/dL (14.0-18.0); LYMPHOCYTES # (AUTO) 1.3 (1.0-3.2); LYMPHOCYTES % 26.5 % (18.0-39.1); MEAN CORPUSCULAR HEMOGLOBIN 30.7 pg (28-32); MEAN CORPUSCULAR HGB CONC 32.2 g/dL (31-35); MEAN CORPUSCULAR VOLUME 95.5 fL (81-99); MONOCYTES # (AUTO) 0.6 (0.2-0.8); MONOCYTES % 12.2 % (4.4-11.3); NEUTROPHILS # (AUTO) 2.8 (2.1-6.9); NEUTROPHILS % 59.7 % (38.7-80.0); PLATELET COUNT 141 x10e3/uL (140-360); RED BLOOD COUNT 4.62 x10e6/uL (4.3-5.7); RED CELL DISTRIBUTION WIDTH 12.8 % (11.7-14.4)
[~2022-01-29] MED LIST changes: +ATORVASTATIN CA20 MG PO; +BUPIVACAINE HC 0.75% PF 10ML VIAL INJ ONE; -BUPIVACAINE HCL 0.5% INJ 30 ML VIAL INJ ONE; +CALCIUM ACETAT667 M1 PO; -CEFAZOLIN SOD 2 GM/D5W 50ML 50 ML IV ONE; +DEXAMETHASONE SOD PHOS INJ 4 MG/ML SDV ONE; -DEXAMETHASONE SOD PHOS INJ 4 MG/ML VIAL ONE; +ELIQUIS5 MG PO; -EPHEDRINE SULFATE INJ 50 MG/10 ML SYR ONE; +EPHEDRINE SULFATE INJ 50 MG/ML VIAL ONE; +HYDROCODONE/APAP 5MG-325MG TAB ONE; +KETOROLAC TROMETHAMINE 30 MG/ML VIAL ONE; +LUMIGAN2.5 M1 OU; +MIDAZOLAM HCL 2 MG/2 ML VIAL ONE; -MUPIROCIN 2% OINT 22 GM TUBE ONE; +NEOSTIGMINE 1 MG/ML 10ML VIAL ONE; -ONDANSETRON HCL INJ 2 MG/ML VIAL ONE; +ONDANSETRON HCL INJ 2MG/ML 2ML 2 MG/ML VIAL ONE; +POVIDONE IODINE 0.05% 0.05 % ML PO ONE
[2022-01-29 15:35] VITALS: BP 107/61
== END | disposition home or self-care (01) ==
LOC: OR 10:20
PROVIDERS: ATTEND Podiatrist Foot & Ankle Surgery
DX: M20.22 Hallux rigidus, left foot (principal); M19.072 Primary osteoarthritis, left ankle and foot; L89.891 Pressure ulcer of other site, stage 1; I48.91 Unspecified atrial fibrillation; I25.10 Atherosclerotic heart disease of native coronary artery without angina pectoris; I10 Essential (primary) hypertension; K21.9 Gastro-esophageal reflux disease without esophagitis; Z01.810 Encounter for preprocedural cardiovascular examination; Z01.812 Encounter for preprocedural laboratory examination; Z01.818 Encounter for other preprocedural examination; Z20.822 Contact with and (suspected) exposure to COVID-19; Z79.02 Long term (current) use of antithrombotics/antiplatelets; Z79.899 Other long term (current) drug therapy; Z86.73 Personal history of transient ischemic attack (TIA), and cerebral infarction without residual deficits; Z98.61 Coronary angioplasty status
CPT/HCPCS: 28750; 36415; 71046; 76000; 85025; 93005; C1713 ×7; J0690; J1100; J1885; J2001; J2250; J2405; J2704; J2710; J3010; U0002